=== PATIENT | female | born 1985 | race Caucasian/White ===

== ENCOUNTER 2016-07-17 20:47 | Inpatient (IN) | payer OTHER ==
[2016-07-17] MEDS ORDERED: Acetaminophen 325 MG Tab PO PRN (21:24)
[2016-07-17] MEDS ORDERED: Sodium Chloride 0.9% 10 ML Syringe FLUSH PRN (21:24)
[2016-07-17] MEDS ORDERED: Nalbuphine 20 MG/1 ML Amp IVPUSH PRN (21:24)
[2016-07-17] MEDS ORDERED: Ondansetron 4 MG/2 ML SDV IVPUSH PRN (21:24)
[2016-07-17] MEDS ORDERED: Lactated Ringers 1,000 ML IV SCH (21:30)
[2016-07-17] MEDS ORDERED: Oxytocin/Lactated Ringers 10 UNIT/1,000 ML BAG IV SCH ×2 (21:30)
--- NOTE | 2016-07-17 21:39 | PCM.LDHP ---
L&D History of Present Illness - General Date of Service: 07/17/16 Admit Problem/Dx: Patient Status Order with Admit Dx/Problem 07/17/16 21:25 Patient Status [ADT] Routine Patient Status: Refer to Observation Admission Diagnosis/Problem: Pre-eclampsia Reason for Admit: Pre-eclampsia Nurse Unit Type: Labor and Delivery Admitting Physician: Suyapa Rodriguez Attending Physician: Suyapa Rodriguez Admission Diagnosis/Problem Admission Diagnosis/Problem Pre-eclampsia Source of Information: Patient History Limitations: Reports: No limitations - History of Present Illness Introduction:: 30 y/o at 40 0/7 wks gestation who presented for concerns of labor. Doing well. Getting good FM. 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 : 2 Para: 0 LMP (Approximate): Social & Family History - Tobacco Use Smoking Status *Q: Never Smoker - Alcohol Use Alcohol Use History: No Days Per Week of Alcohol Use: 1 Number of Drinks Per Day: 2 Total Drinks Per Week: 2 - Recreational Drug Use Recreational Drug Use: No H&P Review of Systems - Review of Systems: Review Of Systems: See Below General: Reports: no symptoms Pulmonary: Reports: no symptoms Cardiovascular: Reports: no symptoms Gastrointestinal: Reports: No symptoms Genitourinary: Reports: no symptoms Musculoskeletal: Reports: no symptoms Neurological: Reports: headache (intermittent ) L&D Exam - Exam Exam: See Below - Vital Signs Weight: 86.183 kg - OB Specific Contraction Intensity: Mild movement: active heart tones: present heart tones per min: 130 Heart Rate (FHR) Variability: Moderate (6-25 bmp) Presentation: Vertex - Kendrick Score Kendrick Score Cervix Position: Posterior Kendrick Score Consistency: Soft Kendrick Score Effacement: >80% Kendrick Score Dilation: 1-2 cm Kendrick Score Infant's Station: -1 ,0 Kendrick Score Total: 8 - Exam General: alert, oriented, cooperative Lungs: Clear to auscultation, Normal respiratory effort Cardiovascular: regular rate, regular rhythm Abdomen: soft Genitourinary: Normal external exam Back Exam: normal inspection Extremities: normal inspection Skin: warm, dry, intact Neurological: hyperreflexia DTR: 3+: patella (R) Psychiatric: alert, normal affect, normal mood - Problem List (1) Preeclampsia SNOMED Code(s): 675150709 ICD Code: O14.90 - UNSPECIFIED PRE-ECLAMPSIA, UNSPECIFIED TRIMESTER Status : Acute Current Visit: Yes Qualifiers: Trimester: third trimester Qualified Code(s): O14.93 - Unspecified pre- eclampsia, third trimester (2) 40 weeks gestation of SNOMED Code(s): 85575064 ICD Code: Z3A.40 - 40 WEEKS GESTATION OF Status: Acute Current Visit: Yes Problem List Initiated/Reviewed/Updated: Yes Orders Last 24hrs: Active Orders 24 hr Category Date Time Status Patient Status [ADT] Routine ADT 07/17/16 21:25 Ordered Activity as Tolerated [RC] PFP Care 07/17/16 21:25 Ordered Communication Order [RC] ASDIRECTED Care 07/17/16 21:25 Ordered Communication Order [RC] ASDIRECTED Care 07/17/16 21:25 Ordered Communication Order [RC] ASDIRECTED Care 07/17/16 21:25 Ordered Heart Tones [RC] ASDIRECTED Care 07/17/16 21:26 Ordered Notify Provider [RC] ASDIRECTED Care 07/17/16 21:25 Ordered Notify Provider [RC] PFP Care 07/17/16 21:25 Ordered Notify Provider [RC] PRN Care 07/17/16 21:25 Ordered Peripheral IV Care [RC] . DIRECTED Care 07/17/16 21:26 Ordered Vaginal Exam [RC] ASDIRECTED Care 07/17/16 21:25 Ordered Vital Signs [RC] ASDIRECTED Care 07/17/16 21:25 Ordered Regular Diet [DIET] Diet 07/17/16 Breakfast Ordered ALANINE AMINOTRANSFERASE,ALT [CHEM] Routine Lab 07/17/16 21:24 Ordered ASPARTATE AMNIOTRANSFERASE,AST [CHEM] Routine Lab 07/17/16 21:24 Ordered BASIC METABOLIC PANEL,BMP [CHEM] Routine Lab 07/17/16 21:24 Ordered CBC W/O DIFF,HEMOGRAM [HEME] Routine Lab 07/17/16 21:24 Ordered TYPE AND SCREEN [BBK] Routine Lab 07/17/16 21:24 Ordered Acetaminophen [Tylenol] Med 07/17/16 21:24 Ordered 650 mg PO Q4H PRN Lactated Ringers [Ringers, Lactated] 1,000 ml Med 07/17/16 21:30 Ordered IV ASDIRECTED Nalbuphine [Nubain] Med 07/17/16 21:24 Ordered 10 mg IVPUSH Q2H PRN Ondansetron [Zofran] Med 07/17/16 21:24 Ordered 4 mg IVPUSH Q4H PRN Oxytocin/Lactated Ringers [Pitocin in LR 10 Units/1,000 Med 07/17/16 21:30 Ordered ML] 10 unit in 1,000 ml IV TITRATE Oxytocin/Lactated Ringers [Pitocin in LR 10 Units/1,000 Med 07/17/16 21:30 Ordered ML] 10 unit in 1,000 ml IV TITRATE Sodium Chloride 0.9% [Saline Flush] Med 07/17/16 21:24 Ordered 10 ml FLUSH ASDIRECTED PRN Electronic Heart Tones Ext w TOCO [WOMSER] Oth 07/17/16 21:25 Ordered Routine Electronic Heart Tones Internal [WOMSER] Per Unit Oth 07/17/16 21:25 Ordered Routine Peripheral IV Insertion Adult [OM.PC] Routine Oth 07/17/16 21:25 Ordered Resuscitation Status Routine Resus Stat 07/17/16 21:24 Ordered Medication Orders Acetaminophen (Tylenol) 650 mg PO Q4H PRN PRN Reason: Pain (Mild 1-3) and fever Lactated Ringer's (Ringers, Lactated) 1,000 mls @ 40 mls/hr IV ASDIRECTED VANESSA Oxytocin/Lactated Ringer's (Pitocin In Lr 10 Units/1,000 Ml) 10 unit in 1,000 mls @ 500 mls/hr IV TITRATE VANESSA PRN Reason: Protocol Oxytocin/Lactated Ringer's (Pitocin In Lr 10 Units/1,000 Ml) 10 unit in 1,000 mls @ 12 mls/hr IV TITRATE VANESSA; 2 MUNITS/MIN PRN Reason: Protocol Nalbuphine HCl (Nubain) 10 mg IVPUSH Q2H PRN PRN Reason: Pain (moderate 4-6) Ondansetron HCl (Zofran) 4 mg IVPUSH Q4H PRN PRN Reason: Nausea/Vomiting Sodium Chloride (Saline Flush) 10 ml FLUSH ASDIRECTED PRN PRN Reason: Keep Vein Open Assessment/Plan Comment:: 30 y/o at 40 0/7 wks presented for labor check. Exam similar to clinic , however, patient with several mild range BP's. Given gestational age and elevated BP's will move forward with IOL. * CBC, T&S, AST, ALT, Cr, and UA * Discussed options of cytotec vs pitocin. Patient to decide which she is most comfortable with * Pain management per patient preference * GBS negative, no need for antibiotics * Anticipate Suyapa Rodriguez MD
[2016-07-18] MEDS ORDERED: diphenhydrAMINE 50 MG/ML SDV IVPUSH PRN (04:52)
[2016-07-18] MEDS ORDERED: fentaNYL 100 MCG/2 ML SDV EPIDUR PRN (04:52)
[2016-07-18] MEDS ORDERED: ePHEDrine 50 MG/ML SDV IVPUSH PRN (04:52)
[2016-07-18] MEDS ORDERED: Bupivacaine/fentaNYL/NS 100 ML Bag EPIDUR SCH (05:00)
--- NOTE | 2016-07-18 05:24 | PCM.PREANE ---
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 Respiratory: Reports: no symptoms Cardiovascular: Reports: no symptoms GI: Reports: no symptoms Other: Reports: none - PHYSICAL ASSESSMENT HR: 86 O2 Sat by Pulse Oximetry: 99 RR: 18 BP: 140/76 Vital Signs: Last Vital Signs Temp 37.2 C 07/17/16 21:25 Pulse 100 07/17/16 21:25 Resp 18 07/17/16 21:25 BP 140/76 07/17/16 21:25 Pulse Ox 99 07/17/16 21:25 Height: 1.73 m Weight: 102.512 kg ASA Class: 2 Mental Status: alert & oriented x3 Airway Class: Mallampati = 1 Dentition: Reports: normal dentition Thyro-Mental Finger Breadths: 3 Mouth Opening Finger Breadths: 3 ROM/Head Extension: full Respiratory Status: lungs clear to auscultation bilaterally Cardiovascular Status: regular rate & rhythm, normal S1, S2, no murmur, blood pressure WNL - LAB Values: Laboratory Last Values WBC 10.67 K/mm3 (3.98-10.04) H 07/17/16 21:55 RBC 4.84 M/mm3 (3.98-5.22) 07/17/16 21:55 Hgb 13.9 gm/L (11.2-15.7) 07/17/16 21:55 Hct 40.0 % (34.1-44.9) 07/17/16 21:55 MCV 82.6 fl (79.4-94.8) 07/17/16 21:55 MCH 28.7 pg (25.6-32.2) 07/17/16 21:55 MCHC 34.8 g/dl (32.2-35.5) 07/17/16 21:55 RDW Std Deviation 43.6 fL (36.4-46.3) 07/17/16 21:55 Plt Count 279 K/mm3 (182-369) 07/17/16 21:55 MPV 10.6 fl (9.4-12.3) 07/17/16 21:55 Sodium 138 mEq/L (136-145) 07/17/16 21:55 Potassium 3.8 mEq/L (3.5-5.1) 07/17/16 21:55 Chloride 103 mEq/L (98-107) 07/17/16 21:55 Carbon Dioxide 24 mEq/L (21-32) 07/17/16 21:55 Anion Gap 14.8 (5-15) 07/17/16 21:55 BUN 14 mg/dL (7-18) 07/17/16 21:55 Creatinine 0.8 mg/dL (0.55-1.02) 07/17/16 21:55 Est Cr Clr Drug Dosing 100.90 mL/min 07/17/16 21:55 Estimated GFR (MDRD) > 60 mL/min (>60) 07/17/16 21:55 BUN/Creatinine Ratio 17.5 (14-18) 07/17/16 21:55 Glucose 86 mg/dL (74-106) 07/17/16 21:55 Calcium 9.4 mg/dL (8.5-10.1) 07/17/16 21:55 AST 16 U/L (15-37) 07/17/16 21:55 ALT 17 U/L (14-59) 07/17/16 21:55 Urine Color Yellow (Yellow) 07/17/16 23:10 Urine Appearance Clear (Clear) 07/17/16 23:10 Urine pH 7.0 (5.0-8.0) 07/17/16 23:10 Ur Specific [place] 1.020 (1.005-1.030) 07/17/16 23:10 Urine Protein Negative (Negative) 07/17/16 23:10 Urine Glucose (UA) Negative (Negative) 07/17/16 23:10 Urine Ketones Negative (Negative) 07/17/16 23:10 Urine Occult Blood Negative (Negative) 07/17/16 23:10 Urine Nitrite Negative (Negative) 07/17/16 23:10 Urine Bilirubin Negative (Negative) 07/17/16 23:10 Urine Urobilinogen 0.2 (0.2-1.0) 07/17/16 23:10 Ur Leukocyte Esterase 1+ (Negative) H 07/17/16 23:10 Urine RBC Not seen /hpf (0-5) 07/17/16 23:10 Urine WBC 0-5 /hpf (0-5) 07/17/16 23:10 Ur Squamous Epith Cells 0-5 /hpf (0-5) 07/17/16 23:10 Urine Bacteria Few /hpf (FEW) 07/17/16 23:10 Urine Mucus Not seen /hpf (FEW) 07/17/16 23:10 Blood Type B POSITIVE 07/17/16 21:55 Gel Antibody Screen Negative 07/17/16 21:55 - ALLERGIES Allergies/Adverse Reactions: Allergies Allergy/AdvReac Type Severity Reaction Status Date / Time No Known Allergies Allergy Verified 07/17/16 22:37 - ANESTHESIA PLAN Preop Beta Kim: No Anesthesia Type Planned: epidural - ACKNOWLEDGEMENTS Pt an appropriate candidate for the planned anesthesia: Yes Alternatives and risks of anesthesia discussed w pt/guardian: Yes Pt/Guardian understands and agree with anesthesia plan: Yes PreAnesthesia Questionnaire - Past Health History Medical/Surgical History: Denies 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: , 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 Psychiatric History: Reports: Anxiety, Depression - SUBSTANCE USE Smoking Status *Q: Never Smoker Second Hand Smoke Exposure: No Days Per Week of Alcohol Use: 1 Number of Drinks Per Day: 2 Total Drinks Per Week: 2 Recreational Drug Use History: No - HOME MEDS Home Medications: Home Meds Citalopram [Celexa] 1 tab PO DAILY 08/14/14 [History] Acetaminophen/HYDROcodone [[place] 325-5 MG] 1 tab PO Q6H PRN #5 tab 08/15/14 [Rx] Ondansetron [Zofran ODT] 4 mg PO Q6H PRN #2 tab.dis 08/15/14 [Rx] - CURRENT (IN HOUSE) MEDS Current Meds: Current Medications Acetaminophen (Tylenol) 650 mg PO Q4H PRN PRN Reason: Pain (Mild 1-3) and fever Diphenhydramine HCl (Benadryl) 25 mg IVPUSH Q6H PRN PRN Reason: Itching Ephedrine Sulfate (Ephedrine Sulfate) 5 mg IVPUSH ASDIRECTED PRN PRN Reason: HYPOTENTSION Fentanyl (Sublimaze) 100 mcg EPIDUR Q3H PRN PRN Reason: PAIN Last Admin: 07/18/16 05:13 Dose: 100 mcg Fentanyl/Bupivacaine HCl (Fentanyl/Bupivacaine/Ns 2 Mcg-0.125% 100 Ml) 100 ml EPIDUR ASDIRECTED VANESSA Last Admin: 07/18/16 05:13 Dose: 100 ml Lactated Ringer's (Ringers, Lactated) 1,000 mls @ 40 mls/hr IV ASDIRECTED VANESSA Last Admin: 07/17/16 22:10 Dose: 40 mls/hr Oxytocin/Lactated Ringer's (Pitocin In Lr 10 Units/1,000 Ml) 10 unit in 1,000 mls @ 500 mls/hr IV TITRATE VANESSA PRN Reason: Protocol Oxytocin/Lactated Ringer's (Pitocin In Lr 10 Units/1,000 Ml) 10 unit in 1,000 mls @ 12 mls/hr IV TITRATE VANESSA; 2 MUNITS/MIN PRN Reason: Protocol Last Titration: 07/18/16 02:40 Dose: 18 munits/min, 108 mls/hr Nalbuphine HCl (Nubain) 10 mg IVPUSH Q2H PRN PRN Reason: Pain (moderate 4-6) Ondansetron HCl (Zofran) 4 mg IVPUSH Q4H PRN PRN Reason: Nausea/Vomiting Sodium Chloride (Saline Flush) 10 ml FLUSH ASDIRECTED PRN PRN Reason: Keep Vein Open
--- NOTE | 2016-07-18 07:31 | PCM.PNLD ---
Labor Progress Note - VS & Meds Vital Signs: Last Vital Signs Temp 37.2 C 07/17/16 21:25 Pulse 86 07/18/16 05:24 Resp 18 07/18/16 05:24 BP 140/76 07/18/16 05:24 Pulse Ox 99 07/18/16 05:24 Active Medications: Current Medications Acetaminophen (Tylenol) 650 mg PO Q4H PRN PRN Reason: Pain (Mild 1-3) and fever Diphenhydramine HCl (Benadryl) 25 mg IVPUSH Q6H PRN PRN Reason: Itching Ephedrine Sulfate (Ephedrine Sulfate) 5 mg IVPUSH ASDIRECTED PRN PRN Reason: HYPOTENTSION Fentanyl (Sublimaze) 100 mcg EPIDUR Q3H PRN PRN Reason: PAIN Last Admin: 07/18/16 05:13 Dose: 100 mcg Fentanyl/Bupivacaine HCl (Fentanyl/Bupivacaine/Ns 2 Mcg-0.125% 100 Ml) 100 ml EPIDUR ASDIRECTED VANESSA Last Admin: 07/18/16 05:13 Dose: 100 ml Lactated Ringer's (Ringers, Lactated) 1,000 mls @ 40 mls/hr IV ASDIRECTED VANESSA Last Admin: 07/17/16 22:10 Dose: 40 mls/hr Oxytocin/Lactated Ringer's (Pitocin In Lr 10 Units/1,000 Ml) 10 unit in 1,000 mls @ 500 mls/hr IV TITRATE VANESSA PRN Reason: Protocol Oxytocin/Lactated Ringer's (Pitocin In Lr 10 Units/1,000 Ml) 10 unit in 1,000 mls @ 12 mls/hr IV TITRATE VANESSA; 2 MUNITS/MIN PRN Reason: Protocol Last Titration: 07/18/16 02:40 Dose: 18 munits/min, 108 mls/hr Nalbuphine HCl (Nubain) 10 mg IVPUSH Q2H PRN PRN Reason: Pain (moderate 4-6) Ondansetron HCl (Zofran) 4 mg IVPUSH Q4H PRN PRN Reason: Nausea/Vomiting Sodium Chloride (Saline Flush) 10 ml FLUSH ASDIRECTED PRN PRN Reason: Keep Vein Open - Uterine Contractions Uterine Monitoring Mode: External [place] Contraction Intensity: Moderate to Strong - Monitoring Monitor Mode: External Ultrasound Heart Rate (FHR) Baseline: 135 Heart Rate (FHR) Variability: Moderate (6-25 bmp) Accelerations: Present, 15x15 Decelerations: Early Strip Review: Category I - Vaginal Exam Dilation (cm): 6-7 Effacement (Percent): 100 Station: 1 Cervical Position: Midposition - Labor Progress (Free Text) Labor Progress: Doing well. Comfortable with epidural. Pitocin at 18. AROM performed with release of clear fluid. Anticipate
[2016-07-18] MEDS ORDERED: Ampicillin 2 GM in Sodium Chloride 0.9% 100 ML IV SCH (10:30)
[2016-07-18] MEDS ORDERED: Misoprostol 200 MCG Tab ONE (12:37)
[2016-07-18] MEDS ORDERED: ceFAZolin 2 GM in Premix Bag 1 BAG IV ONE (13:01)
[2016-07-18] MEDS ORDERED: Misoprostol 200 MCG Tab PO STA (13:02)
--- NOTE | 2016-07-18 13:17 | PCM.DEL ---
L & D Note - General Info Date of Service: 07/18/16 - Delivery Note Labor: induced by oxytocin Delivery Outcome: Livebirth Infant Delivery Method: Spontaneous Vaginal Delivery Delivery Mode: Spontaneous Presentation: Left Occiput Posterior (LOP) Nuchal cord: none Anesthesia Type: Epidural Amniotic Fluid Description: Clear Episiotomy Type: None Laceration: 2nd degree, labial (right), perineal Suture type: vicryl Suture size: 2-0 Placenta: manual removal (cord avulsion) Cord: 3 vessels Estimated blood loss: 450 Resuscitation needed: Yes [place]: bulb syringe, cathether, stimulated, warmed, blanket used Score 1 min: 8 Score 5 min: 9 Delivery Comments (Free Text/Narrative):: Patient found to be complete and began pushing. During pushing time patient with a fever to 101.0. She was started on Ampicillin and Gentamicin for chorioamnionitis. She continued to push. After ~3 hours of pushing head delivered from an LOP presentation. No nuchal cord present. With gentle downward traction shoulders and body delivered. Infant placed on maternal abdomen. Cord clamped and cut. Cord blood obtained. Gentle traction put on the cord and it did avulse off the placenta. Manual exploration performed of the uterus and the placenta was able to be extracted in two parts. One last sweep of the uterus confirmed it to be empty. Inspection of the perineum then done which showed a 2nd degree perineal laceration repaired with a 2-0 vicryl in the typical fashion and a right sided labial tear repaired with a running 3-0 vicry. Patient received 2 grams of ancef and 800 mcg of cytotec with manual extraction of placenta. - Patient Data Vitals - most recent: Last Vital Signs Temp 37.2 C 07/17/16 21:25 Pulse 86 07/18/16 05:24 Resp 18 07/18/16 05:24 BP 140/76 07/18/16 05:24 Pulse Ox 99 07/18/16 05:24 Weight - most recent: 102.512 kg Lab Results last 24 hrs: Laboratory Results - last 24 hr 07/17/16 07/17/16 07/17/16 Range/Units 21:55 21:55 21:55 WBC 10.67 H (3.98-10.04) K/mm3 RBC 4.84 (3.98-5.22) M/mm3 Hgb 13.9 (11.2-15.7) gm/L Hct 40.0 (34.1-44.9) % MCV 82.6 (79.4-94.8) fl MCH 28.7 (25.6-32.2) pg MCHC 34.8 (32.2-35.5) g/dl RDW Std Deviation 43.6 (36.4-46.3) fL Plt Count 279 (182-369) K/mm3 MPV 10.6 (9.4-12.3) fl Sodium 138 (136-145) mEq/L Potassium 3.8 (3.5-5.1) mEq/L Chloride 103 (98-107) mEq/L Carbon Dioxide 24 (21-32) mEq/L Anion Gap 14.8 (5-15) BUN 14 (7-18) mg/dL Creatinine 0.8 (0.55-1.02) mg/dL Est Cr Clr Drug Dosing 100.90 mL/min Estimated GFR (MDRD) > 60 (>60) mL/min BUN/Creatinine Ratio 17.5 (14-18) Glucose 86 (74-106) mg/dL Calcium 9.4 (8.5-10.1) mg/dL AST 16 (15-37) U/L ALT 17 (14-59) U/L Urine Color (Yellow) Urine Appearance (Clear) Urine pH (5.0-8.0) Ur Specific [place] (1.005-1.030) Urine Protein (Negative) Urine Glucose (UA) (Negative) Urine Ketones (Negative) Urine Occult Blood (Negative) Urine Nitrite (Negative) Urine Bilirubin (Negative) Urine Urobilinogen (0.2-1.0) Ur Leukocyte Esterase (Negative) Urine RBC (0-5) /hpf Urine WBC (0-5) /hpf Ur Squamous Epith Cells (0-5) /hpf Urine Bacteria (FEW) /hpf Urine Mucus (FEW) /hpf Blood Type B POSITIVE Gel Antibody Screen Negative 07/17/16 Range/Units 23:10 WBC (3.98-10.04) K/mm3 RBC (3.98-5.22) M/mm3 Hgb (11.2-15.7) gm/L Hct (34.1-44.9) % MCV (79.4-94.8) fl MCH (25.6-32.2) pg MCHC (32.2-35.5) g/dl RDW Std Deviation (36.4-46.3) fL Plt Count (182-369) K/mm3 MPV (9.4-12.3) fl Sodium (136-145) mEq/L Potassium (3.5-5.1) mEq/L Chloride (98-107) mEq/L Carbon Dioxide (21-32) mEq/L Anion Gap (5-15) BUN (7-18) mg/dL Creatinine (0.55-1.02) mg/dL Est Cr Clr Drug Dosing mL/min Estimated GFR (MDRD) (>60) mL/min BUN/Creatinine Ratio (14-18) Glucose (74-106) mg/dL Calcium (8.5-10.1) mg/dL AST (15-37) U/L ALT (14-59) U/L Urine Color Yellow (Yellow) Urine Appearance Clear (Clear) Urine pH 7.0 (5.0-8.0) Ur Specific [place] 1.020 (1.005-1.030) Urine Protein Negative (Negative) Urine Glucose (UA) Negative (Negative) Urine Ketones Negative (Negative) Urine Occult Blood Negative (Negative) Urine Nitrite Negative (Negative) Urine Bilirubin Negative (Negative) Urine Urobilinogen 0.2 (0.2-1.0) Ur Leukocyte Esterase 1+ H (Negative) Urine RBC Not seen (0-5) /hpf Urine WBC 0-5 (0-5) /hpf Ur Squamous Epith Cells 0-5 (0-5) /hpf Urine Bacteria Few (FEW) /hpf Urine Mucus Not seen (FEW) /hpf Blood Type Gel Antibody Screen Med Orders - Current: Current Medications Acetaminophen (Tylenol) 650 mg PO Q4H PRN PRN Reason: Pain (Mild 1-3) and fever Diphenhydramine HCl (Benadryl) 25 mg IVPUSH Q6H PRN PRN Reason: Itching Ephedrine Sulfate (Ephedrine Sulfate) 5 mg IVPUSH ASDIRECTED PRN PRN Reason: HYPOTENTSION Fentanyl (Sublimaze) 100 mcg EPIDUR Q3H PRN PRN Reason: PAIN Last Admin: 07/18/16 05:13 Dose: 100 mcg Fentanyl/Bupivacaine HCl (Fentanyl/Bupivacaine/Ns 2 Mcg-0.125% 100 Ml) 100 ml EPIDUR ASDIRECTED [facility] Last Admin: 07/18/16 05:13 Dose: 100 ml Lactated Ringer's (Ringers, Lactated) 1,000 mls @ 40 mls/hr IV ASDIRECTED VANESSA Last Admin: 07/17/16 22:10 Dose: 40 mls/hr Oxytocin/Lactated Ringer's (Pitocin In Lr 10 Units/1,000 Ml) 10 unit in 1,000 mls @ 500 mls/hr IV TITRATE VANESSA PRN Reason: Protocol Last Admin: 07/18/16 10:38 Dose: 84 mls/hr Oxytocin/Lactated Ringer's (Pitocin In Lr 10 Units/1,000 Ml) 10 unit in 1,000 mls @ 12 mls/hr IV TITRATE VANESSA; 2 MUNITS/MIN PRN Reason: Protocol Last Titration: 07/18/16 02:40 Dose: 18 munits/min, 108 mls/hr Ampicillin Sodium 2 gm/ Sodium (Chloride) 100 mls @ 200 mls/hr IV Q6H [facility] Last Admin: 07/18/16 10:38 Dose: 200 mls/hr Cefazolin Sodium/Dextrose 2 gm (/ Premix) 50 mls @ 100 mls/hr IV ONETIME ONE Stop: 07/18/16 13:30 Nalbuphine HCl (Nubain) 10 mg IVPUSH Q2H PRN PRN Reason: Pain (moderate 4-6) Ondansetron HCl (Zofran) 4 mg IVPUSH Q4H PRN PRN Reason: Nausea/Vomiting Sodium Chloride (Saline Flush) 10 ml FLUSH ASDIRECTED PRN PRN Reason: Keep Vein Open Discontinued Medications Gentamicin Sulfate 200 mg/ (Sodium Chloride) 105 mls @ 200 mls/hr IV ONETIME ONE Stop: 07/18/16 11:16 Last Admin: 07/18/16 10:54 Dose: 200 mls/hr Misoprostol (Cytotec) Confirm Administered Dose 600 mcg .ROUTE .STK-MED ONE Stop: 07/18/16 12:38 Misoprostol (Cytotec) 600 mcg PO NOW STA Stop: 07/18/16 13:03 - Problem List & Annotations (1) Preeclampsia SNOMED Code(s): 101287972 Code(s): O14.90 - UNSPECIFIED PRE-ECLAMPSIA, UNSPECIFIED TRIMESTER Status: Acute Current Visit: Yes Qualifiers: Trimester: third trimester Qualified Code(s): O14.93 - Unspecified pre- eclampsia, third trimester (2) 40 weeks gestation of SNOMED Code(s): 69945293 Code(s): Z3A.40 - 40 WEEKS GESTATION OF Status: Acute Current Visit: Yes (3) Chorioamnionitis SNOMED Code(s): 60766590 Code(s): O41.1290 - CHORIOAMNIONITIS, UNSP TRIMESTER, NOT APPLICABLE OR UNSP Status: Acute Current Visit: Yes Qualifiers: Fetus number: single or unspecified fetus Trimester: third trimester Qualified Code(s): O41.1230 - Chorioamnionitis, third trimester, not applicable or unspecified (4) Vaginal delivery SNOMED Code(s): 299044549 Code(s): O80 - ENCOUNTER FOR FULL-TERM UNCOMPLICATED DELIVERY Status: Acute Current Visit: Yes (5) Occiput posterior presentation of fetus SNOMED Code(s): 43943968 Code(s): O64.0XX0 - OBSTRUCTED LABOR DUE TO INCMPL ROTATION OF HEAD, UNSP Status: Acute Current Visit: Yes Qualifiers: Fetus number: single or unspecified fetus Qualified Code(s): O64.0XX0 - Obstructed labor due to incomplete rotation of head, not applicable or unspecified (6) Retained placenta SNOMED Code(s): 474344557 Code(s): O73.0 - RETAINED PLACENTA WITHOUT HEMORRHAGE Status: Acute Current Visit: Yes Qualifiers: Retained placenta detail: unspecified Qualified Code(s): O73.0 - Retained placenta without hemorrhage - Problem List Review Problem List Initiated/Reviewed/Updated: Yes - My Orders Last 24 Hours: My Active Orders 07/17/16 21:24 Acetaminophen [Tylenol] 650 mg PO Q4H PRN Nalbuphine [Nubain] 10 mg IVPUSH Q2H PRN Ondansetron [Zofran] 4 mg IVPUSH Q4H PRN Sodium Chloride 0.9% [Saline Flush] 10 ml FLUSH ASDIRECTED PRN Resuscitation Status Routine 07/17/16 21:25 Patient Status [ADT] Routine Activity as Tolerated [RC] PFP Communication Order [RC] ASDIRECTED Communication Order [RC] ASDIRECTED Communication Order [RC] ASDIRECTED Notify Provider [RC] ASDIRECTED Vital Signs [RC] ASDIRECTED Electronic Heart Tones Ext w TOCO [WOMSER] Routine Electronic Heart Tones Internal [WOMSER] Per Unit Routine Peripheral IV Insertion Adult [OM.PC] Routine 07/17/16 21:26 Peripheral IV Care [RC] . DIRECTED 07/17/16 21:30 Lactated Ringers [Ringers, Lactated] 1,000 ml IV ASDIRECTED Oxytocin/Lactated Ringers [Pitocin in LR 10 Units/1,000 ML] 10 unit in 1,000 ml IV TITRATE Oxytocin/Lactated Ringers [Pitocin in LR 10 Units/1,000 ML] 10 unit in 1,000 ml IV TITRATE 07/17/16 21:55 PATIENT RETYPE [BBK] Routine TYPE AND SCREEN [BBK] Routine 07/18/16 10:30 Ampicillin 2 gm Sodium Chloride 0.9% [Normal Saline] 100 ml IV Q6H 07/18/16 13:01 ceFAZolin [Ancef] 2 gm Premix Bag 1 bag IV ONETIME 07/18/16 13:05 Patient Status Manage Transfer [TRANSFER] Routine - Assessment Assessment:: 30 y/o G2 now P1011 PPD#0 from at 40 1/7 wks - Plan Plan:: Preeclampsia * Monitor BP's closely * 1 week follow up in clinic for BP check Delivery with Chorioamnionitis / Retained placenta * S/p Amp/Gent for chorioamnionitis and dose of ancef for manual extraction. Will continue abx for 24 hours * 600 mcg of cytotec given at delivery. Will continue cytotec for 24 hours * Monitor closely for signs of infection and heavy bleeding indicative of retained portions of placenta S/p * Encourage breast feeding * Discharge home in 2 days
[2016-07-18] MEDS ORDERED: Benzocaine/Menthol 20%-0.5% Spray 56 GM Canister TOP PRN (14:43)
[2016-07-18] MEDS ORDERED: Docusate Sodium 100 MG Cap PO PRN (14:43)
[2016-07-18] MEDS ORDERED: Lanolin 100% Cream 7 GM Tube TOP PRN (14:43)
[2016-07-18] MEDS ORDERED: Witch Hazel Medicated Pads 100/Jar TOP PRN (14:43)
[2016-07-18] MEDS ORDERED: Acetaminophen/Codeine 300-30 MG Tab PO PRN (14:43)
[2016-07-18] MEDS: Ibuprofen 600 MG Tab PO PRN ×2 (16:38→21:17)
--- NOTE | 2016-07-18 16:42 | PCM48HPAN ---
Post Anesthesia Note - EVALUATION WITHIN 48HRS OF ANESTHETIC Vital Signs in Normal Range: Yes Patient Participated in Evaluation: Yes Respiratory Function Stable: Yes Airway Patent: Yes Cardiovascular Function Stable: Yes Hydration Status Stable: Yes Pain Control Satisfactory: Yes Nausea and Vomiting Control Satisfactory: Yes Mental Status Recovered: Yes - COMMENTS/OBSERVATIONS Free Text/Narrative:: Post anesthesia assessment after epidural placement/discontinuation
[2016-07-18] MEDS: Misoprostol 200 MCG Tab SCH (21:20)
[2016-07-18] MEDS: ceFAZolin 1 GM in Premix Bag 1 BAG IV SCH (21:21)
[2016-07-19] MEDS: Acetaminophen 325 MG Tab PO PRN ×2 (00:30→19:10)
[2016-07-19] MEDS: Misoprostol 200 MCG Tab SCH (04:33)
[2016-07-19] MEDS: ceFAZolin 1 GM in Premix Bag 1 BAG IV SCH ×2 (04:40→09:25)
[2016-07-19] MEDS: Ibuprofen 600 MG Tab PO PRN ×2 (08:15→14:55)
--- NOTE | 2016-07-19 10:40 | PCM.SN ---
- Free Text/Narrative Note: Afebrile Tmax 100 through the night. Uterus soft, non tender, normal bleeding, noleg cramping. Last dose of Ansef at 1000 AM start Generic Keflex 1600, possibly home tomorrow
[2016-07-19] MEDS: Cephalexin 500 MG Cap PO SCH ×3 (13:46→21:57)
[2016-07-20] MEDS: Cephalexin 500 MG Cap PO SCH ×2 (04:30→10:19)
[2016-07-20] MEDS: Ibuprofen 600 MG Tab PO PRN ×2 (04:30→12:44)
[2016-07-20 05:39] VITALS: BP 117/74
--- NOTE | 2016-07-20 11:00 | PCM.DCSUM1 ---
Discharge Summary - Hospital Course Free Text/Narrative:: [facility] LIVE L/D Delivery Note Patient Name: JACQUES LANDIS Date of : 87 Patient Status: Inpatient Attending Provider: Suyapa Rodriguez Date: 07/18/16 13:15 Initialization Date: 07/18/16 13:15 L & D Note - General Info Date of Service: 07/18/16 - Delivery Note Labor: induced by oxytocin Delivery Outcome: Livebirth Infant Delivery Method: Spontaneous Vaginal Delivery Infant Delivery Mode: Spontaneous Presentation: Left Occiput Posterior (LOP) Nuchal cord: none Anesthesia Type: Epidural Amniotic Fluid Description: Clear Episiotomy Type: None Laceration: 2nd degree, labial (right), perineal Suture type: vicryl Suture size: 2-0 Placenta: manual removal (cord avulsion) Cord: 3 vessels Estimated blood loss: 450 Resuscitation needed: Yes : bulb syringe, cathether, stimulated, warmed, blanket used Score 1 min: 8 Score 5 min: 9 Delivery Comments (Free Text/Narrative):: Patient found to be complete and began pushing. During pushing time patient with a fever to 101.0. She was started on Ampicillin and Gentamicin for chorioamnionitis. She continued to push. After ~3 hours of pushing head delivered from an LOP presentation. No nuchal cord present. With gentle downward traction shoulders and body delivered. placed on maternal abdomen. Cord clamped and cut. Cord blood obtained. Gentle traction put on the cord and it did avulse off the placenta. Manual exploration performed of the uterus and the placenta was able to be extracted in two parts. One last sweep of the uterus confirmed it to be empty. Inspection of the perineum then done which showed a 2nd degree perineal laceration repaired with a 2-0 vicryl in the typical fashion and a right sided labial tear repaired with a running 3-0 vicry. Patient received 2 grams of ancef and 800 mcg of cytotec with manual extraction of placenta. - Patient Data Vitals - most recent: Last Vital Signs Temp 37.2 C 07/17/16 21:25 Pulse 86 07/18/16 05:24 Resp 18 07/18/16 05:24 BP 140/76 07/18/16 05:24 Pulse Ox 99 07/18/16 05:24 Weight - most recent: 102.512 kg Lab Results last 24 hrs: Laboratory Results - last 24 hr 07/17/16 07/17/16 07/17/16 Range/Units 21:55 21:55 21:55 WBC 10.67 H (3.98-10.04) K/mm3 RBC 4.84 (3.98-5.22) M/mm3 Hgb 13.9 (11.2-15.7) gm/L Hct 40.0 (34.1-44.9) % MCV 82.6 (79.4-94.8) fl MCH 28.7 (25.6-32.2) pg MCHC 34.8 (32.2-35.5) g/dl RDW Std Deviation 43.6 (36.4-46.3) fL Plt Count 279 (182-369) K/mm3 MPV 10.6 (9.4-12.3) fl Sodium 138 (136-145) mEq/L Potassium 3.8 (3.5-5.1) mEq/L Chloride 103 (98-107) mEq/L Carbon Dioxide 24 (21-32) mEq/L Anion Gap 14.8 (5-15) BUN 14 (7-18) mg/dL Creatinine 0.8 (0.55-1.02) mg/dL Est Cr Clr Drug Dosing 100.90 mL/min Estimated GFR (MDRD) > 60 (>60) mL/min BUN/Creatinine Ratio 17.5 (14-18) Glucose 86 (74-106) mg/dL Calcium 9.4 (8.5-10.1) mg/dL AST 16 (15-37) U/L ALT 17 (14-59) U/L Urine Color (Yellow) Urine Appearance (Clear) Urine pH (5.0-8.0) Ur Specific [place] (1.005-1.030) Urine Protein (Negative) Urine Glucose (UA) (Negative) Urine Ketones (Negative) Urine Occult Blood (Negative) Urine Nitrite (Negative) Urine Bilirubin (Negative) Urine Urobilinogen (0.2-1.0) Ur Leukocyte Esterase (Negative) Urine RBC (0-5) /hpf Urine WBC (0-5) /hpf Ur Squamous Epith Cells (0-5) /hpf Urine Bacteria (FEW) /hpf Urine Mucus (FEW) /hpf Blood Type B POSITIVE Gel Antibody Screen Negative 07/17/16 Range/Units 23:10 WBC (3.98-10.04) K/mm3 RBC (3.98-5.22) M/mm3 Hgb (11.2-15.7) gm/L Hct (34.1-44.9) % MCV (79.4-94.8) fl MCH (25.6-32.2) pg MCHC (32.2-35.5) g/dl RDW Std Deviation (36.4-46.3) fL Plt Count (182-369) K/mm3 MPV (9.4-12.3) fl Sodium (136-145) mEq/L Potassium (3.5-5.1) mEq/L Chloride (98-107) mEq/L Carbon Dioxide (21-32) mEq/L Anion Gap (5-15) BUN (7-18) mg/dL Creatinine (0.55-1.02) mg/dL Est Cr Clr Drug Dosing mL/min Estimated GFR (MDRD) (>60) mL/min BUN/Creatinine Ratio (14-18) Glucose (74-106) mg/dL Calcium (8.5-10.1) mg/dL AST (15-37) U/L ALT (14-59) U/L Urine Color Yellow (Yellow) Urine Appearance Clear (Clear) Urine pH 7.0 (5.0-8.0) Ur Specific [place] 1.020 (1.005-1.030) Urine Protein Negative (Negative) Urine Glucose (UA) Negative (Negative) Urine Ketones Negative (Negative) Urine Occult Blood Negative (Negative) Urine Nitrite Negative (Negative) Urine Bilirubin Negative (Negative) Urine Urobilinogen 0.2 (0.2-1.0) Ur Leukocyte Esterase 1+ H (Negative) Urine RBC Not seen (0-5) /hpf Urine WBC 0-5 (0-5) /hpf Ur Squamous Epith Cells 0-5 (0-5) /hpf Urine Bacteria Few (FEW) /hpf Urine Mucus Not seen (FEW) /hpf Blood Type Gel Antibody Screen Med Orders - Current: Current Medications Acetaminophen (Tylenol) 650 mg PO Q4H PRN PRN Reason: Pain (Mild 1-3) and fever Diphenhydramine HCl (Benadryl) 25 mg IVPUSH Q6H PRN PRN Reason: Itching Ephedrine Sulfate (Ephedrine Sulfate) 5 mg IVPUSH ASDIRECTED PRN PRN Reason: HYPOTENTSION Fentanyl (Sublimaze) 100 mcg EPIDUR Q3H PRN PRN Reason: PAIN Last Admin: 07/18/16 05:13 Dose: 100 mcg Fentanyl/Bupivacaine HCl (Fentanyl/Bupivacaine/Ns 2 Mcg-0.125% 100 Ml) 100 ml EPIDUR ASDIRECTED [facility] Last Admin: 07/18/16 05:13 Dose: 100 ml Lactated Ringer's (Ringers, Lactated) 1,000 mls @ 40 mls/hr IV ASDIRECTED [facility] Last Admin: 07/17/16 22:10 Dose: 40 mls/hr Oxytocin/Lactated Ringer's (Pitocin In Lr 10 Units/1,000 Ml) 10 unit in 1,000 mls @ 500 mls/hr IV TITRATE VANESSA PRN Reason: Protocol Last Admin: 07/18/16 10:38 Dose: 84 mls/hr Oxytocin/Lactated Ringer's (Pitocin In Lr 10 Units/1,000 Ml) 10 unit in 1,000 mls @ 12 mls/hr IV TITRATE VANESSA; 2 MUNITS/MIN PRN Reason: Protocol Last Titration: 07/18/16 02:40 Dose: 18 munits/min, 108 mls/hr Ampicillin Sodium 2 gm/ Sodium (Chloride) 100 mls @ 200 mls/hr IV Q6H [facility] Last Admin: 07/18/16 10:38 Dose: 200 mls/hr Cefazolin Sodium/Dextrose 2 gm (/ Premix) 50 mls @ 100 mls/hr IV ONETIME ONE Stop: 07/18/16 13:30 Nalbuphine HCl (Nubain) 10 mg IVPUSH Q2H PRN PRN Reason: Pain (moderate 4-6) Ondansetron HCl (Zofran) 4 mg IVPUSH Q4H PRN PRN Reason: Nausea/Vomiting Sodium Chloride (Saline Flush) 10 ml FLUSH ASDIRECTED PRN PRN Reason: Keep Vein Open Discontinued Medications Gentamicin Sulfate 200 mg/ (Sodium Chloride) 105 mls @ 200 mls/hr IV ONETIME ONE Stop: 07/18/16 11:16 Last Admin: 07/18/16 10:54 Dose: 200 mls/hr Misoprostol (Cytotec) Confirm Administered Dose 600 mcg .ROUTE .STK-MED ONE Stop: 07/18/16 12:38 Misoprostol (Cytotec) 600 mcg PO NOW STA Stop: 07/18/16 13:03 - Problem List & Annotations (1) Preeclampsia SNOMED Code(s): 755215807 Code(s): O14.90 - UNSPECIFIED PRE-ECLAMPSIA, UNSPECIFIED TRIMESTER Status: Acute Current Visit: Yes Qualifiers: Trimester: third trimester Qualified Code(s): O14.93 - Unspecified pre- eclampsia, third trimester (2) 40 weeks gestation of SNOMED Code(s): 97721170 Code(s): Z3A.40 - 40 WEEKS GESTATION OF Status: Acute Current Visit: Yes (3) Chorioamnionitis SNOMED Code(s): 08156510 Code(s): O41.1290 - CHORIOAMNIONITIS, UNSP TRIMESTER, NOT APPLICABLE OR UNSP Status: Acute Current Visit: Yes Qualifiers: Fetus number: single or unspecified fetus Trimester: third trimester Qualified Code(s): O41.1230 - Chorioamnionitis, third trimester, not applicable or unspecified (4) Vaginal delivery SNOMED Code(s): 840215932 Code(s): O80 - ENCOUNTER FOR FULL-TERM UNCOMPLICATED DELIVERY Status: Acute Current Visit: Yes (5) Occiput posterior presentation of fetus SNOMED Code(s): 09585719 Code(s): O64.0XX0 - OBSTRUCTED LABOR DUE TO INCMPL ROTATION OF HEAD, UNSP Status: Acute Current Visit: Yes Qualifiers: Fetus number: single or unspecified fetus Qualified Code(s): O64.0XX0 - Obstructed labor due to incomplete rotation of head, not applicable or unspecified (6) Retained placenta SNOMED Code(s): 934516600 Code(s): O73.0 - RETAINED PLACENTA WITHOUT HEMORRHAGE Status: Acute Current Visit: Yes Qualifiers: Retained placenta detail: unspecified Qualified Code(s): O73.0 - Retained placenta without hemorrhage - Problem List Review Problem List Initiated/Reviewed/Updated: Yes - My Orders Last 24 Hours: My Active Orders 07/17/16 21:24 Acetaminophen [Tylenol] 650 mg PO Q4H PRN Nalbuphine [Nubain] 10 mg IVPUSH Q2H PRN Ondansetron [Zofran] 4 mg IVPUSH Q4H PRN Sodium Chloride 0.9% [Saline Flush] 10 ml FLUSH ASDIRECTED PRN Resuscitation Status Routine 07/17/16 21:25 Patient Status [ADT] Routine Activity as Tolerated [RC] PFP Communication Order [RC] ASDIRECTED Communication Order [RC] ASDIRECTED Communication Order [RC] ASDIRECTED Notify Provider [RC] ASDIRECTED Vital Signs [RC] ASDIRECTED Electronic Heart Tones Ext w TOCO [WOMSER] Routine Electronic Heart Tones Internal [WOMSER] Per Unit Routine Peripheral IV Insertion Adult [OM.PC] Routine 07/17/16 21:26 Peripheral IV Care [RC] . DIRECTED 07/17/16 21:30 Lactated Ringers [Ringers, Lactated] 1,000 ml IV ASDIRECTED Oxytocin/Lactated Ringers [Pitocin in LR 10 Units/1,000 ML] 10 unit in 1,000 ml IV TITRATE Oxytocin/Lactated Ringers [Pitocin in LR 10 Units/1,000 ML] 10 unit in 1,000 ml IV TITRATE 07/17/16 21:55 PATIENT RETYPE [BBK] Routine TYPE AND SCREEN [BBK] Routine 07/18/16 10:30 Ampicillin 2 gm Sodium Chloride 0.9% [Normal Saline] 100 ml IV Q6H 07/18/16 13:01 ceFAZolin [Ancef] 2 gm Premix Bag 1 bag IV ONETIME 07/18/16 13:05 Patient Status Manage Transfer [TRANSFER] Routine - Assessment Assessment:: 30 y/o G2 now P1011 PPD#0 from at 40 1/7 wks - Plan Plan:: Preeclampsia * Monitor BP's closely * 1 week follow up in clinic for BP check Delivery with Chorioamnionitis / Retained placenta * S/p Amp/Gent for chorioamnionitis and dose of ancef for manual extraction. Will continue abx for 24 hours * 600 mcg of cytotec given at delivery. Will continue cytotec for 24 hours * Monitor closely for signs of infection and heavy bleeding indicative of retained portions of placenta S/p * Encourage breast feeding * Discharge home in 2 days * * Comtinued Ancef until 1000 AM Thursday then started Generic Keflex 500 q6h will continue at home x10 days. Motrin 600 mg po q6h prn pain HPI Initial Comments: [facility] LIVE L/D Delivery Note Patient Name: JACQUES LANDIS Date of : 87 Patient Status: Inpatient Attending Provider: Suyapa Rodriguez Date: 07/18/16 13:15 Initialization Date: 07/18/16 13:15 L & D Note - General Info Date of Service: 07/18/16 - Delivery Note Labor: induced by oxytocin Delivery Outcome: Livebirth Infant Delivery Method: Spontaneous Vaginal Delivery Infant Delivery Mode: Spontaneous Presentation: Left Occiput Posterior (LOP) Nuchal cord: none Anesthesia Type: Epidural Amniotic Fluid Description: Clear Episiotomy Type: None Laceration: 2nd degree, labial (right), perineal Suture type: vicryl Suture size: 2-0 Placenta: manual removal (cord avulsion) Cord: 3 vessels Estimated blood loss: 450 Resuscitation needed: Yes [place]: bulb syringe, cathether, stimulated, warmed, blanket used Score 1 min: 8 Score 5 min: 9 Delivery Comments (Free Text/Narrative):: Patient found to be complete and began pushing. During pushing time patient with a fever to 101.0. She was started on Ampicillin and Gentamicin for chorioamnionitis. She continued to push. After ~3 hours of pushing head delivered from an LOP presentation. No nuchal cord present. With gentle downward traction shoulders and body delivered. Infant placed on maternal abdomen. Cord clamped and cut. Cord blood obtained. Gentle traction put on the cord and it did avulse off the placenta. Manual exploration performed of the uterus and the placenta was able to be extracted in two parts. One last sweep of the uterus confirmed it to be empty. Inspection of the perineum then done which showed a 2nd degree perineal laceration repaired with a 2-0 vicryl in the typical fashion and a right sided labial tear repaired with a running 3-0 vicry. Patient received 2 grams of ancef and 800 mcg of cytotec with manual extraction of placenta. - Patient Data Vitals - most recent: Last Vital Signs Temp 37.2 C 07/17/16 21:25 Pulse 86 07/18/16 05:24 Resp 18 07/18/16 05:24 BP 140/76 07/18/16 05:24 Pulse Ox 99 07/18/16 05:24 Weight - most recent: 102.512 kg Lab Results last 24 hrs: Laboratory Results - last 24 hr 07/17/16 07/17/16 07/17/16 Range/Units 21:55 21:55 21:55 WBC 10.67 H (3.98-10.04) K/mm3 RBC 4.84 (3.98-5.22) M/mm3 Hgb 13.9 (11.2-15.7) gm/L Hct 40.0 (34.1-44.9) % MCV 82.6 (79.4-94.8) fl MCH 28.7 (25.6-32.2) pg MCHC 34.8 (32.2-35.5) g/dl RDW Std Deviation 43.6 (36.4-46.3) fL Plt Count 279 (182-369) K/mm3 MPV 10.6 (9.4-12.3) fl Sodium 138 (136-145) mEq/L Potassium 3.8 (3.5-5.1) mEq/L Chloride 103 (98-107) mEq/L Carbon Dioxide 24 (21-32) mEq/L Anion Gap 14.8 (5-15) BUN 14 (7-18) mg/dL Creatinine 0.8 (0.55-1.02) mg/dL Est Cr Clr Drug Dosing 100.90 mL/min Estimated GFR (MDRD) > 60 (>60) mL/min BUN/Creatinine Ratio 17.5 (14-18) Glucose 86 (74-106) mg/dL Calcium 9.4 (8.5-10.1) mg/dL AST 16 (15-37) U/L ALT 17 (14-59) U/L Urine Color (Yellow) Urine Appearance (Clear) Urine pH (5.0-8.0) Ur Specific [place] (1.005-1.030) Urine Protein (Negative) Urine Glucose (UA) (Negative) Urine Ketones (Negative) Urine Occult Blood (Negative) Urine Nitrite (Negative) Urine Bilirubin (Negative) Urine Urobilinogen (0.2-1.0) Ur Leukocyte Esterase (Negative) Urine RBC (0-5) /hpf Urine WBC (0-5) /hpf Ur Squamous Epith Cells (0-5) /hpf Urine Bacteria (FEW) /hpf Urine Mucus (FEW) /hpf Blood Type B POSITIVE Gel Antibody Screen Negative 07/17/16 Range/Units 23:10 WBC (3.98-10.04) K/mm3 RBC (3.98-5.22) M/mm3 Hgb (11.2-15.7) gm/L Hct (34.1-44.9) % MCV (79.4-94.8) fl MCH (25.6-32.2) pg MCHC (32.2-35.5) g/dl RDW Std Deviation (36.4-46.3) fL Plt Count (182-369) K/mm3 MPV (9.4-12.3) fl Sodium (136-145) mEq/L Potassium (3.5-5.1) mEq/L Chloride (98-107) mEq/L Carbon Dioxide (21-32) mEq/L Anion Gap (5-15) BUN (7-18) mg/dL Creatinine (0.55-1.02) mg/dL Est Cr Clr Drug Dosing mL/min Estimated GFR (MDRD) (>60) mL/min BUN/Creatinine Ratio (14-18) Glucose (74-106) mg/dL Calcium (8.5-10.1) mg/dL AST (15-37) U/L ALT (14-59) U/L Urine Color Yellow (Yellow) Urine Appearance Clear (Clear) Urine pH 7.0 (5.0-8.0) Ur Specific [place] 1.020 (1.005-1.030) Urine Protein Negative (Negative) Urine Glucose (UA) Negative (Negative) Urine Ketones Negative (Negative) Urine Occult Blood Negative (Negative) Urine Nitrite Negative (Negative) Urine Bilirubin Negative (Negative) Urine Urobilinogen 0.2 (0.2-1.0) Ur Leukocyte Esterase 1+ H (Negative) Urine RBC Not seen (0-5) /hpf Urine WBC 0-5 (0-5) /hpf Ur Squamous Epith Cells 0-5 (0-5) /hpf Urine Bacteria Few (FEW) /hpf Urine Mucus Not seen (FEW) /hpf Blood Type Gel Antibody Screen Med Orders - Current: Current Medications Acetaminophen (Tylenol) 650 mg PO Q4H PRN PRN Reason: Pain (Mild 1-3) and fever Diphenhydramine HCl (Benadryl) 25 mg IVPUSH Q6H PRN PRN Reason: Itching Ephedrine Sulfate (Ephedrine Sulfate) 5 mg IVPUSH ASDIRECTED PRN PRN Reason: HYPOTENTSION Fentanyl (Sublimaze) 100 mcg EPIDUR Q3H PRN PRN Reason: PAIN Last Admin: 07/18/16 05:13 Dose: 100 mcg Fentanyl/Bupivacaine HCl (Fentanyl/Bupivacaine/Ns 2 Mcg-0.125% 100 Ml) 100 ml EPIDUR ASDIRECTED VANESSA Last Admin: 07/18/16 05:13 Dose: 100 ml Lactated Ringer's (Ringers, Lactated) 1,000 mls @ 40 mls/hr IV ASDIRECTED VANESSA Last Admin: 07/17/16 22:10 Dose: 40 mls/hr Oxytocin/Lactated Ringer's (Pitocin In Lr 10 Units/1,000 Ml) 10 unit in 1,000 mls @ 500 mls/hr IV TITRATE VANESSA PRN Reason: Protocol Last Admin: 07/18/16 10:38 Dose: 84 mls/hr Oxytocin/Lactated Ringer's (Pitocin In Lr 10 Units/1,000 Ml) 10 unit in 1,000 mls @ 12 mls/hr IV TITRATE VANESSA; 2 MUNITS/MIN PRN Reason: Protocol Last Titration: 07/18/16 02:40 Dose: 18 munits/min, 108 mls/hr Ampicillin Sodium 2 gm/ Sodium (Chloride) 100 mls @ 200 mls/hr IV Q6H [facility] Last Admin: 07/18/16 10:38 Dose: 200 mls/hr Cefazolin Sodium/Dextrose 2 gm (/ Premix) 50 mls @ 100 mls/hr IV ONETIME ONE Stop: 07/18/16 13:30 Nalbuphine HCl (Nubain) 10 mg IVPUSH Q2H PRN PRN Reason: Pain (moderate 4-6) Ondansetron HCl (Zofran) 4 mg IVPUSH Q4H PRN PRN Reason: Nausea/Vomiting Sodium Chloride (Saline Flush) 10 ml FLUSH ASDIRECTED PRN PRN Reason: Keep Vein Open Discontinued Medications Gentamicin Sulfate 200 mg/ (Sodium Chloride) 105 mls @ 200 mls/hr IV ONETIME ONE Stop: 07/18/16 11:16 Last Admin: 07/18/16 10:54 Dose: 200 mls/hr Misoprostol (Cytotec) Confirm Administered Dose 600 mcg .ROUTE .STK-MED ONE Stop: 07/18/16 12:38 Misoprostol (Cytotec) 600 mcg PO NOW STA Stop: 07/18/16 13:03 - Problem List & Annotations (1) Preeclampsia SNOMED Code(s): 429505073 Code(s): O14.90 - UNSPECIFIED PRE-ECLAMPSIA, UNSPECIFIED TRIMESTER Status: Acute Current Visit: Yes Qualifiers: Trimester: third trimester Qualified Code(s): O14.93 - Unspecified pre- eclampsia, third trimester (2) 40 weeks gestation of SNOMED Code(s): 28803011 Code(s): Z3A.40 - 40 WEEKS GESTATION OF Status: Acute Current Visit: Yes (3) Chorioamnionitis SNOMED Code(s): 43994691 Code(s): O41.1290 - CHORIOAMNIONITIS, UNSP TRIMESTER, NOT APPLICABLE OR UNSP Status: Acute Current Visit: Yes Qualifiers: Fetus number: single or unspecified fetus Trimester: third trimester Qualified Code(s): O41.1230 - Chorioamnionitis, third trimester, not applicable or unspecified (4) Vaginal delivery SNOMED Code(s): 624871563 Code(s): O80 - ENCOUNTER FOR FULL-TERM UNCOMPLICATED DELIVERY Status: Acute Current Visit: Yes (5) Occiput posterior presentation of fetus SNOMED Code(s): 26107835 Code(s): O64.0XX0 - OBSTRUCTED LABOR DUE TO INCMPL ROTATION OF HEAD, UNSP Status: Acute Current Visit: Yes Qualifiers: Fetus number: single or unspecified fetus Qualified Code(s): O64.0XX0 - Obstructed labor due to incomplete rotation of head, not applicable or unspecified (6) Retained placenta SNOMED Code(s): 260419977 Code(s): O73.0 - RETAINED PLACENTA WITHOUT HEMORRHAGE Status: Acute Current Visit: Yes Qualifiers: Retained placenta detail: unspecified Qualified Code(s): O73.0 - Retained placenta without hemorrhage - Problem List Review Problem List Initiated/Reviewed/Updated: Yes - My Orders Last 24 Hours: My Active Orders 07/17/16 21:24 Acetaminophen [Tylenol] 650 mg PO Q4H PRN Nalbuphine [Nubain] 10 mg IVPUSH Q2H PRN Ondansetron [Zofran] 4 mg IVPUSH Q4H PRN Sodium Chloride 0.9% [Saline Flush] 10 ml FLUSH ASDIRECTED PRN Resuscitation Status Routine 07/17/16 21:25 Patient Status [ADT] Routine Activity as Tolerated [RC] PFP Communication Order [RC] ASDIRECTED Communication Order [RC] ASDIRECTED Communication Order [RC] ASDIRECTED Notify Provider [RC] ASDIRECTED Vital Signs [RC] ASDIRECTED Electronic Heart Tones Ext w TOCO [WOMSER] Routine Electronic Heart Tones Internal [WOMSER] Per Unit Routine Peripheral IV Insertion Adult [OM.PC] Routine 07/17/16 21:26 Peripheral IV Care [RC] . DIRECTED 07/17/16 21:30 Lactated Ringers [Ringers, Lactated] 1,000 ml IV ASDIRECTED Oxytocin/Lactated Ringers [Pitocin in LR 10 Units/1,000 ML] 10 unit in 1,000 ml IV TITRATE Oxytocin/Lactated Ringers [Pitocin in LR 10 Units/1,000 ML] 10 unit in 1,000 ml IV TITRATE 07/17/16 21:55 PATIENT RETYPE [BBK] Routine TYPE AND SCREEN [BBK] Routine 07/18/16 10:30 Ampicillin 2 gm Sodium Chloride 0.9% [Normal Saline] 100 ml IV Q6H 07/18/16 13:01 ceFAZolin [Ancef] 2 gm Premix Bag 1 bag IV ONETIME 07/18/16 13:05 Patient Status Manage Transfer [TRANSFER] Routine - Assessment Assessment:: 30 y/o G2 now P1011 PPD#0 from at 40 1/7 wks - Plan Plan:: Preeclampsia * Monitor BP's closely * 1 week follow up in clinic for BP check Delivery with Chorioamnionitis / Retained placenta * S/p Amp/Gent for chorioamnionitis and dose of ancef for manual extraction. Will continue abx for 24 hours * 600 mcg of cytotec given at delivery. Will continue cytotec for 24 hours * Monitor closely for signs of infection and heavy bleeding indicative of retained portions of placenta S/p * Encourage breast feeding * Discharge home in 2 days * * Comtinued Ancef until 1000 AM Thursday then started Generic Keflex 500 q6h will continue at home x10 days. Motrin 600 mg po q6h prn pain Brief History: [facility] LIVE . L/D Delivery Note. Patient Name: JACQUES LANDISILedical Record Number: [id number]. Date of : Patient Status: Inpatient. Attending Provider: Suyapa Rodriguezcount Number : [id number]. Date: 07/18/16 13:15Initialization Date: 07/18/16 13:15. L & D Note. - General Info. Date of Service: 07/18/16. - Delivery Note. Labor: induced by oxytocin. Delivery Outcome: Livebirth. Delivery Method: Spontaneous Vaginal Delivery. Infant Delivery Mode: Spontaneous. Presentation: Left Occiput Posterior (LOP). Nuchal cord: none. Anesthesia Type : Epidural. Amniotic Fluid Description: Clear. Episiotomy Type: None. Laceration: 2nd degree, labial (right), perineal. Suture type: vicryl. Suture size: 2-0. Placenta: manual removal (cord avulsion). Cord: 3 vessels. Estimated blood loss: 450. Resuscitation needed: Yes. [place]: bulb syringe, cathether, stimulated, warmed, blanket used. Score 1 min: 8. Score 5 min: 9. Delivery Comments (Free Text/Narrative):: Patient found to be complete and began pushing. During pushing time patient with a fever to 101.0. She was started on Ampicillin and Gentamicin for chorioamnionitis. She continued to push. After ~3 hours of pushing head delivered from an LOP presentation. No nuchal cord present. With gentle downward traction shoulders and body delivered. Infant placed on maternal abdomen. Cord clamped and cut. Cord blood obtained. Gentle traction put on the cord and it did avulse off the placenta. Manual exploration performed of the uterus and the placenta was able to be extracted in two parts. One last sweep of the uterus confirmed it to be empty. Inspection of the perineum then done which showed a 2nd degree perineal laceration repaired with a 2-0 vicryl in the typical fashion and a right sided labial tear repaired with a running 3-0 vicry. Patient received 2 grams of ancef and 800 mcg of cytotec with manual extraction of placenta. - Patient Data. Vitals - most recent: Last Vital Signs. Temp 37.2 C 07/17/16 21:25. Pulse 86 07/18/16 05:24. Resp 18 07/18/16 05:24. BP 140/76 07/18/16 05:24. Pulse Ox 99 07/18/16 05:24. Weight - most recent: 102.512 kg. Lab Results last 24 hrs: Laboratory Results - last 24 hr. 07/17/ /Range/Units. 21:5521:5521:55. WBC 10.67 H (3.98-10.04) K/ mm3. RBC 4.84 (3.98-5.22) M/mm3. Hgb 13.9 (11.2-15.7) gm/L. Hct 40.0 (34.1- 44.9) %. MCV 82.6 (79.4-94.8) fl. MCH 28.7 (25.6-32.2) pg. MCHC 34.8 (32.2 -35.5) g/dl. RDW Std Deviation 43.6 (36.4-46.3) fL. Plt Count 279 (182-369) K/mm3. MPV 10.6 (9.4-12.3) fl. Sodium 138 (136-145) mEq/L. Potassium 3.8 (3.5-5.1) mEq/L. Chloride 103 (98-107) mEq/L. Carbon Dioxide 24 (21-32) mEq /L. Anion Gap 14.8 (5-15). BUN 14 (7-18) mg/dL. Creatinine 0.8 (0.55-1.02) mg/dL. Est Cr Clr Drug Dosing 100.90 mL/min. Estimated GFR (MDRD) > 60 (>60) mL/min. BUN/Creatinine Ratio 17.5 (14-18). Glucose 86 (74-106) mg/dL. Calcium 9.4 (8.5-10.1) mg/dL. AST 16 (15-37) U/L. ALT 17 (14-59) U/L. Urine Color (Yellow). Urine Appearance (Clear). Urine pH (5.0-8.0). Ur Specific [place] (1.005-1.030). Urine Protein (Negative). Urine Glucose (UA) ( Negative). Urine Ketones (Negative). Urine Occult Blood (Negative). Urine Nitrite (Negative). Urine Bilirubin (Negative). Urine Urobilinogen (0.2-1.0). Ur Leukocyte Esterase (Negative). Urine RBC (0-5) /hpf. Urine WBC (0-5) / hpf. Ur Squamous Epith Cells (0-5) /hpf. Urine Bacteria (FEW) /hpf. Urine Mucus (FEW) /hpf. Blood Type B POSITIVE. Gel Antibody Screen Negative. 07/17Range/Units. 23:10. WBC (3.98-10.04) K/mm3. RBC (3.98-5.22) M/mm3. Hgb (11.2-15.7) gm/L. Hct (34.1-44.9) %. MCV (79.4-94.8) fl. MCH (25.6-32.2) pg. MCHC (32.2-35.5) g/dl. RDW Std Deviation (36.4-46.3) fL. Plt Count (182 -369) K/mm3. MPV (9.4-12.3) fl. Sodium (136-145) mEq/L. Potassium (3.5-5.1 ) mEq/L. Chloride (98-107) mEq/L. Carbon Dioxide (21-32) mEq/L. Anion Gap (5-15). BUN (7-18) mg/dL. Creatinine (0.55-1.02) mg/dL. Est Cr Clr Drug Dosing mL/min. Estimated GFR (MDRD) (>60) mL/min. BUN/Creatinine Ratio (14-18 ). Glucose (74-106) mg/dL. Calcium (8.5-10.1) mg/dL. AST (15-37) U/L. ALT (14-59) U/L. Urine Color Yellow (Yellow). Urine Appearance Clear (Clear) . Urine pH 7.0 (5.0-8.0). Ur Specific [place] 1.020 (1.005-1.030). Urine Protein Negative (Negative). Urine Glucose (UA) Negative (Negative). Urine Ketones Negative (Negative). Urine Occult Blood Negative (Negative). Urine Nitrite Negative (Negative). Urine Bilirubin Negative (Negative). Urine Urobilinogen 0.2 (0.2-1.0). Ur Leukocyte Esterase 1+ H (Negative). Urine RBC Not seen (0-5) /hpf. Urine WBC 0-5 (0-5) /hpf. Ur Squamous Epith Cells 0-5 ( 0-5) /hpf. Urine Bacteria Few (FEW) /hpf. Urine Mucus Not seen (FEW) /hpf. Blood Type. Gel Antibody Screen. Med Orders - Current: Current Medications. Acetaminophen (Tylenol) 650 mg PO Q4H PRN. PRN Reason: Pain ( Mild 1-3) and fever. Diphenhydramine HCl (Benadryl) 25 mg IVPUSH Q6H PRN. PRN Reason: Itching. Ephedrine Sulfate (Ephedrine Sulfate) 5 mg IVPUSH ASDIRECTED PRN. PRN Reason: HYPOTENTSION. Fentanyl (Sublimaze) 100 mcg EPIDUR Q3H PRN. PRN Reason: PAIN. Last Admin: 07/18/16 05:13 Dose: 100 mcg. Fentanyl/Bupivacaine HCl (Fentanyl/Bupivacaine/Ns 2 Mcg-0.125% 100 Ml) 100 ml EPIDUR ASDIRECTED VANESSA. Last Admin: 07/18/16 05:13 Dose: 100 ml. Lactated Ringer's (Ringers, Lactated) 1,000 mls @ 40 mls/hr IV ASDIRECTED VANESSA. Last Admin: 07/17/16 22:10 Dose: 40 mls/hr. Oxytocin/Lactated Ringer's (Pitocin In Lr 10 Units/1,000 Ml) 10 unit in 1,000 mls @ 500 mls/hr IV TITRATE VANESSA. PRN Reason: Protocol. Last Admin: 07/18/16 10:38 Dose: 84 mls/hr. Oxytocin/ Lactated Ringer's (Pitocin In Lr 10 Units/1,000 Ml) 10 unit in 1,000 mls @ 12 mls/hr IV TITRATE VANESSA; 2 MUNITS/MIN. PRN Reason: Protocol. Last Titration: 02/24 02:40 Dose: 18 munits/min, 108 mls/hr. Ampicillin Sodium 2 gm/ Sodium ( Chloride) 100 mls @ 200 mls/hr IV Q6H VANESSA. Last Admin: 07/18/16 10:38 Dose: 200 mls/hr. Cefazolin Sodium/Dextrose 2 gm (/ Premix) 50 mls @ 100 mls/hr IV ONETIME ONE. Stop: 07/18/16 13:30. Nalbuphine HCl (Nubain) 10 mg IVPUSH Q2H PRN. PRN Reason: Pain (moderate 4-6). Ondansetron HCl (Zofran) 4 mg IVPUSH Q4H PRN. PRN Reason: Nausea/Vomiting. Sodium Chloride (Saline Flush) 10 ml FLUSH ASDIRECTED PRN. PRN Reason: Keep Vein Open. Discontinued Medications. Gentamicin Sulfate 200 mg/ (Sodium Chloride) 105 mls @ 200 mls/hr IV ONETIME ONE. Stop: 07/18/16 11:16. Last Admin: 07/18/16 10:54 Dose: 200 mls/hr. Misoprostol (Cytotec) Confirm Administered Dose 600 mcg .ROUTE .STK-MED ONE. Stop: 07/18/16 12:38. Misoprostol (Cytotec) 600 mcg PO NOW STA. Stop: 13:03. - Problem List & Annotations. (1) Preeclampsia. SNOMED Code(s): 456111682. Code(s): O14.90 - UNSPECIFIED PRE-ECLAMPSIA, UNSPECIFIED TRIMESTER Status: Acute Current Visit: Yes. Qualifiers: Trimester: third trimester Qualified Code(s): O14.93 - Unspecified pre-eclampsia, third trimester. (2) 40 weeks gestation of . SNOMED Code(s): 18438004. Code(s): Z3A.40 - 40 WEEKS GESTATION OF Status: Acute Current Visit: Yes. (3) Chorioamnionitis. SNOMED Code(s): 81517990. Code(s): O41.1290 - CHORIOAMNIONITIS, UNSP TRIMESTER, NOT APPLICABLE OR UNSP Status: Acute Current Visit: Yes. Qualifiers: Fetus number: single or unspecified fetus Trimester: third trimester Qualified Code(s): O41.1230 - Chorioamnionitis, third trimester, not applicable or unspecified. (4) Vaginal delivery. SNOMED Code(s): 218658608. Code(s): O80 - ENCOUNTER FOR FULL-TERM UNCOMPLICATED DELIVERY Status: Acute Current Visit: Yes. (5) Occiput posterior presentation of fetus. SNOMED Code(s): 14420839. Code(s): O64.0XX0 - OBSTRUCTED LABOR DUE TO INCMPL ROTATION OF HEAD, UNSP Status: Acute Current Visit: Yes. Qualifiers: Fetus number: single or unspecified fetus Qualified Code(s): O64.0XX0 - Obstructed labor due to incomplete rotation of head, not applicable or unspecified. (6) Retained placenta. SNOMED Code( s): 035141051. Code(s): O73.0 - RETAINED PLACENTA WITHOUT HEMORRHAGE Status: Acute Current Visit: Yes. Qualifiers: Retained placenta detail: unspecified Qualified Code(s): O73.0 - Retained placenta without hemorrhage. - Problem List Review. Problem List Initiated/Reviewed/Updated: Yes. - My Orders. Last 24 Hours: My Active Orders. 07/17/16 21:24. Acetaminophen [Tylenol] 650 mg PO Q4H PRN. Nalbuphine [Nubain] 10 mg IVPUSH Q2H PRN. Ondansetron [Zofran] 4 mg IVPUSH Q4H PRN. Sodium Chloride 0.9% [Saline Flush] 10 ml FLUSH ASDIRECTED PRN. Resuscitation Status Routine. 07/17/16 21:25. Patient Status [ADT] Routine. Activity as Tolerated [RC] PFP. Communication Order [RC] ASDIRECTED. Communication Order [RC] ASDIRECTED. Communication Order [RC] ASDIRECTED. Notify Provider [RC] ASDIRECTED. Vital Signs [RC] ASDIRECTED. Electronic Heart Tones Ext w TOCO [WOMSER] Routine. Electronic Heart Tones Internal [WOMSER] Per Unit Routine. Peripheral IV Insertion Adult [ OM.PC] Routine. 07/17/16 21:26. Peripheral IV Care [RC] . DIRECTED. 21:30. Lactated Ringers [Ringers, Lactated] 1,000 ml IV ASDIRECTED. Oxytocin/Lactated Ringers [Pitocin in LR 10 Units/1,000 ML] 10 unit in 1,000 ml IV TITRATE. Oxytocin/Lactated Ringers [Pitocin in LR 10 Units/1,000 ML] 10 unit in 1,000 ml IV TITRATE. 07/17/16 21:55. PATIENT RETYPE [BBK] Routine. TYPE AND SCREEN [BBK] Routine. 07/18/16 10:30. Ampicillin 2 gm Sodium Chloride 0.9% [Normal Saline] 100 ml IV Q6H. 07/18/16 13:01. ceFAZolin [Ancef ] 2 gm Premix Bag 1 bag IV ONETIME. 07/18/16 13:05. Patient Status Manage Transfer [TRANSFER] Routine. - Assessment. Assessment:: 30 y/o G2 now P1011 PPD#0 from at 40 1/7 wks. - Plan. Plan:: Preeclampsia. Monitor BP's closely. 1 week follow up in clinic for BP check. Delivery with Chorioamnionitis / Retained placenta. S/p Amp/Gent for chorioamnionitis and dose of ancef for manual extraction. Will continue abx for 24 hours. 600 mcg of cytotec given at delivery. Will continue cytotec for 24 hours. Monitor closely for signs of infection and heavy bleeding indicative of retained portions of placenta. S/p . Encourage breast feeding. Discharge home in 2 days. Comtinued Ancef until 1000 AM Thursday then started Generic Keflex 500 q6h will continue at home x10 days. Motrin 600 mg po q6h prn pain - Discharge Data Discharge Date: 07/20/16 Discharge Disposition: Home, Self-Care 01 Condition: Good - Discharge Diagnosis/Problem(s) (1) Pyrexia of unknown origin during the puerperium SNOMED Code(s): 558842611 ICD Code: O86.4 - PYREXIA OF UNKNOWN ORIGIN FOLLOWING DELIVERY Status: Acute Current Visit: Yes (2) 40 weeks gestation of SNOMED Code(s): 57203497 ICD Code: Z3A.40 - 40 WEEKS GESTATION OF Status: Acute Current Visit: Yes (3) Chorioamnionitis SNOMED Code(s): 80417177 ICD Code: O41.1290 - CHORIOAMNIONITIS, UNSP TRIMESTER, NOT APPLICABLE OR UNSP Status: Acute Current Visit: Yes Qualifiers: Fetus number: single or unspecified fetus Trimester: third trimester Qualified Code(s): O41.1230 - Chorioamnionitis, third trimester, not applicable or unspecified - Patient Summary/Data Complications: none other than noted Consults: none Hospital Course: uneventful - Patient Instructions Diet: Heart Healthy Diet Driving: Do Not Drive (x48 hrs) Showering/Bathing: September Shower Notify Provider of: Fever, Increased Pain, Swelling and Redness, Drainage, Nausea and/or Vomiting - Discharge Plan Prescriptions/Med Rec: Cephalexin [IJD: Cephalexin] 500 mg PO Q6HR #40 capsule Ibuprofen [IJD: Ibuprofen] 600 mg PO Q6H PRN #50 tablet PRN Reason: Pain Home Medications: Home Meds Citalopram [Celexa] 1 tab PO DAILY 08/14/14 [History] Ondansetron [Zofran ODT] 4 mg PO Q6H PRN #2 tab.dis 08/15/14 [Rx] Cephalexin [IJD: Cephalexin] 500 mg PO Q6HR #40 capsule 07/19/16 [Rx] Ibuprofen [IJD: Ibuprofen] 600 mg PO Q6H PRN #50 tablet 07/19/16 [Rx] Acetaminophen [Tylenol] 650 mg PO Q6H PRN #0 tablet 07/20/16 [Rx] Benzocaine/Menthol [Dermoplast Pain Relief [place]] 1 spray TOP ASDIRECTED PRN #0 canister 07/20/16 [Rx] Docusate Sodium [Colace] 100 mg PO BID PRN #0 cap 07/20/16 [Rx] Witch Farrah [Tucks] 1 pad TOP ASDIRECTED PRN #0 pad 07/20/16 [Rx] Referrals: Suyapa Rodriguez MD [Primary Care Provider] - (6 weeks) - Discharge Summary/Plan Comment DC Time >30 min.: No - Patient Data Vitals - Most Recent: Last Vital Signs Temp 97.3 F 07/20/16 04:40 Pulse 82 07/20/16 04:40 Resp 16 07/20/16 04:40 BP 117/74 07/20/16 04:40 Pulse Ox 99 07/20/16 04:40 Weight - Most Recent: 226 lb Med Orders - Current: Current Medications Acetaminophen (Tylenol) 650 mg PO Q4H PRN PRN Reason: mild pain or fever Last Admin: 07/19/16 19:10 Dose: 650 mg Acetaminophen/Codeine Phosphate (Tylenol With Codeine No.3 300mg/30mg) 2 tab PO Q4H PRN PRN Reason: Pain (moderate 4-6) Benzocaine/Menthol (Dermoplast Pain Relief [place]) 0 gm TOP ASDIRECTED PRN PRN Reason: Perineal Comfort Measure Last Admin: 07/18/16 16:28 Dose: 1 applic Cephalexin (Keflex) 500 mg PO Q6H [facility] Last Admin: 07/20/16 10:19 Dose: 500 mg Docusate Sodium (Colace) 100 mg PO BID PRN PRN Reason: Constipation Last Admin: 07/18/16 21:16 Dose: 100 mg Emollient Ointment (Lansinoh Hpa) 0 gm TOP ASDIRECTED PRN PRN Reason: Sore Nipples Ibuprofen (Motrin) 600 mg PO Q4H PRN PRN Reason: Mild pain or fever Last Admin: 07/20/16 04:30 Dose: 600 mg Witch Farrah (Tucks) 1 pad TOP ASDIRECTED PRN PRN Reason: Hemorrhoid pain Last Admin: 07/18/16 16:27 Dose: 1 applic Discontinued Medications Acetaminophen (Tylenol) 650 mg PO Q4H PRN PRN Reason: Pain (Mild 1-3) and fever Cephalexin (Keflex) 500 mg PO Q6HR VANESSA Last Admin: 07/19/16 13:46 Dose: Not Given Diphenhydramine HCl (Benadryl) 25 mg IVPUSH Q6H PRN PRN Reason: Itching Ephedrine Sulfate (Ephedrine Sulfate) 5 mg IVPUSH ASDIRECTED PRN PRN Reason: HYPOTENTSION Fentanyl (Sublimaze) 100 mcg EPIDUR Q3H PRN PRN Reason: PAIN Last Admin: 07/18/16 05:13 Dose: 100 mcg Fentanyl/Bupivacaine HCl (Fentanyl/Bupivacaine/Ns 2 Mcg-0.125% 100 Ml) 100 ml EPIDUR ASDIRECTED [facility] Last Admin: 07/18/16 05:13 Dose: 100 ml Lactated Ringer's (Ringers, Lactated) 1,000 mls @ 40 mls/hr IV ASDIRECTED [facility] Last Admin: 07/17/16 22:10 Dose: 40 mls/hr Oxytocin/Lactated Ringer's (Pitocin In Lr 10 Units/1,000 Ml) 10 unit in 1,000 mls @ 500 mls/hr IV TITRATE VANESSA PRN Reason: Protocol Last Admin: 07/18/16 10:38 Dose: 84 mls/hr Oxytocin/Lactated Ringer's (Pitocin In Lr 10 Units/1,000 Ml) 10 unit in 1,000 mls @ 12 mls/hr IV TITRATE VANESSA; 2 MUNITS/MIN PRN Reason: Protocol Last Titration: 07/18/16 02:40 Dose: 18 munits/min, 108 mls/hr Ampicillin Sodium 2 gm/ Sodium (Chloride) 100 mls @ 200 mls/hr IV Q6H [facility] Last Admin: 07/18/16 10:38 Dose: 200 mls/hr Gentamicin Sulfate 200 mg/ (Sodium Chloride) 105 mls @ 200 mls/hr IV ONETIME ONE Stop: 07/18/16 11:16 Last Admin: 07/18/16 10:54 Dose: 200 mls/hr Cefazolin Sodium/Dextrose 2 gm (/ Premix) 50 mls @ 100 mls/hr IV ONETIME ONE Stop: 07/18/16 13:30 Last Admin: 07/18/16 16:49 Dose: 100 mls/hr Cefazolin Sodium/Dextrose 1 gm (/ Premix) 50 mls @ 100 mls/hr IV Q6H [facility] Stop: 07/19/16 10:29 Last Admin: 07/19/16 09:25 Dose: 100 mls/hr Misoprostol (Cytotec) Confirm Administered Dose 600 mcg .ROUTE .STK-MED ONE Stop: 07/18/16 12:38 Last Admin: 07/18/16 20:28 Dose: Not Given Misoprostol (Cytotec) 600 mcg PO NOW STA Stop: 07/18/16 13:03 Last Admin: 07/18/16 12:45 Dose: 600 mcg Misoprostol (Cytotec) 400 mcg .XX Q8H VANESSA Stop: 07/19/16 05:16 Last Admin: 07/19/16 04:33 Dose: 400 mcg Nalbuphine HCl (Nubain) 10 mg IVPUSH Q2H PRN PRN Reason: Pain (moderate 4-6) Ondansetron HCl (Zofran) 4 mg IVPUSH Q4H PRN PRN Reason: Nausea/Vomiting Sodium Chloride (Saline Flush) 10 ml FLUSH ASDIRECTED PRN PRN Reason: Keep Vein Open *Q Meaningful Use (DIS) - VTE *Q VTE Criteria *Q: - Stroke *Q Stroke Criteria *Q: - AMI *Q AMI Criteria *Q:
== END 2016-07-20 16:30 | disposition home or self-care (01) | DRG 767 ==
LOC: JD.OB 20:47 → JD.OBCHECK 20:47 → JD.OB 21:25 → OBSVTOIN 07-18 12:23
PROVIDERS: ADMIT Obstetrics & Gynecology; ATTEND Obstetrics & Gynecology
PROC: 10E0XZZ Delivery of Products of Conception, External Approach (ICD-10-PCS; principal; 2016-07-18)
PROC: 0KQM0ZZ Repair Perineum Muscle, Open Approach (ICD-10-PCS; 2016-07-18)
PROC: 10907ZC Drainage of Amniotic Fluid, Therapeutic from Products of Conception, Via Natural or Artificial Opening (ICD-10-PCS; 2016-07-18)
PROC: 3E033VJ Introduction of Other Hormone into Peripheral Vein, Percutaneous Approach (ICD-10-PCS; 2016-07-18)
PROC: 00HU33Z Insertion of Infusion Device into Spinal Canal, Percutaneous Approach (ICD-10-PCS; 2016-07-18)
PROC: 3E0R3CZ (ICD-10-PCS; 2016-07-18)
PROC: 10D17ZZ Extraction of Products of Conception, Retained, Via Natural or Artificial Opening (ICD-10-PCS; 2016-07-18)
DX: O14.94 Unspecified pre-eclampsia, complicating childbirth (principal); O41.1230 Chorioamnionitis, third trimester, not applicable or unspecified; O70.1 Second degree perineal laceration during delivery; O69.89X0 Labor and delivery complicated by other cord complications, not applicable or unspecified; Z3A.40 40 weeks gestation of pregnancy; Z37.0 Single live birth
CPT/HCPCS: 01967; 36415; 80048; 81001; 84450; 84460; 85027; 86850; 86900; 86901; 88307; 88307-26; A9270-GY; J0290; J0690; J1580; J2590; J3010; J7030; J7120

== ENCOUNTER 2019-09-17 03:45 | Emergency (ER) | payer BC ==
[2019-09-17 03:58] VITALS: BP 120/69; PULSE 90
--- NOTE | 2019-09-17 04:30 | EDM.PDOC ---
ED HPI GENERAL MEDICAL PROBLEM - General Chief Complaint: Back Pain or Injury Stated Complaint: cyst in spine and pain cant sleep Time Seen by Provider: 09/17/19 04:01 Source of Information: Reports: Patient History Limitations: Reports: No Limitations - History of Present Illness INITIAL COMMENTS - FREE TEXT/NARRATIVE: This is a 33-year-old female. 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 It is not causing any symptoms or neurological deficits. She has seen a doctor specialist in [place] that is monitoring her on a regular basis. Apparently 3 days ago she had an adjustment with a chiropractor here in town and it was a rather rough adjustment and she was very tight tense since then she has been having spasms and throbbing pain and pressure in her lower thoracic area. Is been so uncomfortable she is having a hard time sitting or laying down and she is not sleeping well at night. Also known to have an occult spina bifida and a bulge at L4-L5 in the lumbar spine but no herniated disc. She is receiving physical therapy as well because she had some SI joint problems with her last and they are thinking about having another child and wanting physical therapy to correct that area down there as best as possible before she gets . She denies any other acute symptoms. She did bring her MRI report for the C-spine and T-spine which I reviewed with her. Back Pain Score (Numeric/FACES): 6 - Related Data Allergies Allergy/AdvReac Type Severity Reaction Status Date / Time doxycycline Allergy Severe Diarrhea Verified 09/17/19 04:00 Home Meds: Home Meds Citalopram [Celexa] 1 tab PO DAILY 08/14/14 [History] Ibuprofen [IJD: Ibuprofen] 600 mg PO Q6H PRN #50 tablet 07/19/16 [Rx] Past Medical History - Past Health History Medical/Surgical History: Denies Medical/Surgical History ED[employer]ASTER History: Reports: , Spontaneous Musculoskeletal History: Reports: Back Pain, Chronic Other Neuro History: Bulging disc L4 & L5, spina Bifida Psychiatric History: Reports: Anxiety, Depression Social & Family History - Family History Family Medical History: Noncontributory - Tobacco Use Smoking Status *Q: Never Smoker - Caffeine Use Caffeine Use: Reports: None - Recreational Drug Use Recreational Drug Use: No ED ROS GENERAL - Review of Systems Review Of Systems: See Below Constitutional: Denies: Fever, Chills HEENT: Reports: No Symptoms Respiratory: Reports: No Symptoms Cardiovascular: Reports: No Symptoms Endocrine: Reports: No Symptoms GI/Abdominal: Reports: No Symptoms : Reports: No Symptoms Musculoskeletal: Reports: Back Pain Skin: Reports: No Symptoms Neurological: Denies: Numbness, Tingling, Weakness Psychiatric: Reports: No Symptoms Hematologic/Lymphatic: Reports: No Symptoms ED EXAM, UPPER BACK/NECK PAIN - Physical Exam Exam: See Below Exam Limited By: No Limitations General Appearance: Alert, WD/WN, No Apparent Distress Eye Exam: Bilateral Eye: Normal Inspection Ears Exam: Normal External Exam Throat/Mouth Exam: Other (Patient has no nasal or mouth or teeth complaints and is wearing a mask) Head Exam: Normocephalic Neck Exam: Full Range of Motion, Other (There is no cervical tenderness on palpation or with movement) Cardiovascular/Respiratory: Regular Rate, Rhythm, No Respiratory Distress GI/Abdominal: Other (She denies any abdominal tenderness) Back Exam: Normal Inspection, Other (Complains of soreness in the mid and lower thoracic area on palpation but there is no midline spine pain. She is able to sit forward and bend forward and twist and turn with a lot of stiffness and soreness but she still able to do it) Extremities: Normal Inspection, Normal Range of Motion Neurologic: No Motor/Sensory Deficits, Alert, Normal Mood/Affect, Oriented x 3 Psychiatric: Normal Affect, Normal Mood Skin Exam: Normal Color, Warm/Dry Course - Vital Signs Last Recorded V/S: Last Vital Signs Temp 97.8 F 09/17/19 03:52 Pulse 90 09/17/19 03:52 Resp 18 09/17/19 03:52 BP 120/69 09/17/19 03:52 Pulse Ox 100 09/17/19 03:52 Departure - Departure Time of Disposition: 04:30 Disposition: Home, Self-Care 01 Condition: Fair Clinical Impression: Sprain thoracic region, Spasm of thoracic back muscle - Discharge Information *PRESCRIPTION DRUG MONITORING PROGRAM REVIEWED*: No *COPY OF PRESCRIPTION DRUG MONITORING REPORT IN PATIENT LADARIUS: No Instructions: Muscle Strain, [id number], Thoracic Strain Referrals: Elizabeth Eubanks MD [Primary Care Provider] - Additional Instructions: Get your medications out of the [facility] machine in the lobby before you go home , take the Flexeril as needed for the muscle tightness and tenseness but realized this will make you sleepy, use the tramadol as needed for the pain, continue with your physical therapy and gentle stretching and exercises, see your chiropractor on Thursday to see if maybe he can do a more gentle adjustment and ease up some of the symptoms, return to the ER as needed Sepsis Event Note - Evaluation Sepsis Screening Result: No Definite Risk - Focused Exam Vital Signs: Vital Signs Temp Pulse Resp BP Pulse Ox 09/17/19 03:52 97.8 F 90 18 120/69 100 Date Exam was Performed: 09/17/19 Time Exam was Performed: 04:25
== END 2019-09-17 04:41 | disposition home or self-care (01) ==
LOC: JD.ED 03:45
DX: S23.3XXA Sprain of ligaments of thoracic spine, initial encounter (principal); M62.830 Muscle spasm of back; F41.9 Anxiety disorder, unspecified; F32.9 Major depressive disorder, single episode, unspecified; Z88.0 Allergy status to penicillin; Z79.899 Other long term (current) drug therapy; X58.XXXA Exposure to other specified factors, initial encounter
CPT/HCPCS: 99283

== ENCOUNTER 2020-01-16 23:20 | Emergency (ER) | payer BC ==
[2020-01-16 23:46] VITALS: BP 141/89; PULSE 110
--- NOTE | 2020-01-17 00:08 | EDM.PDOC ---
ED HPI GENERAL MEDICAL PROBLEM - General Chief Complaint: Fever Stated Complaint: cough fever sob Time Seen by Provider: 01/16/20 23:35 Source of Information: Reports: Patient History Limitations: Reports: No Limitations - History of Present Illness INITIAL COMMENTS - FREE TEXT/NARRATIVE: Mrs. Todd is a very pleasant 34-year-old woman who now presents to the ED with a complaint of body aches, fever, chills, and cough. She states that she felt fatigued on afternoon, 01/12/2020, after grocery shopping. She states that she then developed body aches, sometimes severe, along with chills on 01/13/2020, and she believes that she may have started to have a fever at that time, as well. She has had a cough, occasionally productive of clear sputum, although denies having dyspnea. She states that her cough is worse when supine, associated with increased breath sounds and possible wheezing. She recorded a temperature of 103.6 degrees yesterday, 01/15/2020. No nausea, vomiting, or diarrhea. Her oral intake is been normal. The patient states that she has been alternating Tylenol and ibuprofen every 3 hours. She also used a leftover albuterol MDI around 22:30 tonight. The patient states that she has had similar symptoms in the past, due to influenza, although she states that her current body aches are worse than ever before. The patient is concerned that she may have acquired COVID-19. 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 Here in the ED, the patient's initial BP is found to be mildly elevated at 1 41/89, with a tachycardia of 110 bpm. She is afebrile, saturating 97% on room air. She does not appear to be in any distress. Up until , 01/12/2020, the patient denies having a recent fever, chills, sore throat, ear pain, nasal or sinus congestion, cough, dyspnea, chest pain, palpitations, nausea, vomiting, constipation, diarrhea, abdominal pain, urinary symptoms, recent weight gain or weight loss, recent bloody bowel movements or black bowel movements, recent joint aches, headaches, or rashes. The patient's PCP is Dr. Elizabeth Keating. Her Forensic Anthropologist is Dr. Suyapa Rodriguez. 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) Psychiatric History: Reports: Anxiety (untreated), Depression (untreated) Endocrine/Metabolic History: Reports: Obesity/BMI 30+ - Past Surgical History HEENT Surgical History: Reports: Oral Surgery (wisdom teeth extraction) Dermatological Surgical History: Reports: Other (See Below) (Pilonidal cyst excision) Social & Family History - Family History Family Medical History: Noncontributory - Tobacco Use Smoking Status *Q: Never Smoker - Caffeine Use Caffeine Use: Reports: None - Alcohol Use Alcohol Use History: Yes Alcohol Use Frequency: Socially - Recreational Drug Use Recreational Drug Use: No - Living Situation & Occupation Living situation: Reports: , with Spouse, with Family (1 child) 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 ED EXAM, GENERAL - Physical Exam Exam: See Below Exam Limited By: No Limitations General Appearance: Alert, WD/WN, No Apparent Distress Eye Exam: Bilateral Eye: EOMI, Normal Inspection Ears: Normal External Exam, Hearing Grossly Normal Nose: Normal Inspection Throat/Mouth: Normal Inspection, Normal Lips, Normal Voice, No Airway Compromise Head: Atraumatic, Normocephalic Neck: Normal Inspection, Full Range of Motion Respiratory/Chest: No Respiratory Distress, Lungs Clear, Normal Breath Sounds (no change between sitting and supine), No Accessory Muscle Use. No: Decreased Breath Sounds, Crackles, Rhonchi, Wheezing, Stridor, Prolonged Expiration Cardiovascular: Normal Peripheral Pulses, Regular Rate, Rhythm, No Edema, No Gallop, No JVD, No Murmur, No Rub Peripheral Pulses: 3+: Radial (L), Radial (R) GI/Abdominal: Normal Bowel Sounds, Soft, Non-Tender, No Organomegaly, No Distention, No Abnormal Bruit, No Mass (Female) Exam: Deferred Rectal (Female) Exam: Deferred Back Exam: Normal Inspection, Full Range of Motion, NT Extremities: Normal Inspection, Normal Range of Motion, No Pedal Edema, Normal Capillary Refill Neurological: Alert, Oriented, Normal Cognition, No Motor/Sensory Deficits Psychiatric: Normal Affect Skin Exam: Warm, Dry, Intact, Normal Color, No Rash EKG INTERPRETATION EKG Date: 01/17/20 Time: 00:25 Rhythm: Other (Sinus tachycardia) Rate (Beats/Min): 103 [place]: Normal P-Wave: Present QRS: Normal ST-T: Normal QT: Normal Comparison: NA - No Prior EKG Course - Vital Signs Last Recorded V/S: Last Vital Signs Temp 36.9 C 01/17/20 02:46 Pulse 110 H 01/16/20 23:42 Resp 16 01/16/20 23:42 BP 141/89 H 01/16/20 23:42 Pulse Ox 97 01/16/20 23:42 - Orders/Labs/Meds Orders: Active Orders 24 hr Category Date Time Status EKG Documentation Completion [RC] STAT Care 01/17/20 00:00 Active Chest 2V [CR] Stat Exams 01/17/20 00:00 Taken CULTURE BLOOD [BC] Stat Lab 01/17/20 01:00 Received CULTURE BLOOD [BC] Stat Lab 01/17/20 01:10 Received Blood Culture x2 Reflex Set [OM.PC] Stat Oth 01/17/20 00:01 Ordered Labs: Laboratory Tests 01/17/20 01/17/20 01/17/20 Range/Units 01:00 01:00 01:00 WBC 4.70 (3.98-10.04) K/mm3 RBC 4.97 (3.98-5.22) M/mm3 Hgb 13.5 D (11.2-15.7) gm/dl Hct 40.4 (34.1-44.9) % MCV 81.3 D (79.4-94.8) fl MCH 27.2 (25.6-32.2) pg MCHC 33.4 (32.2-35.5) g/dl RDW Std Deviation 38.0 (36.4-46.3) fL Plt Count 186 (182-369) K/mm3 MPV 10.2 (9.4-12.3) fl Neutrophils % (Manual) 83 H (40-60) % Band Neutrophils % 0 (0-10) % Lymphocytes % (Manual) 14 L (20-40) % Atypical Lymphs % 0 % Monocytes % (Manual) 3 (2-10) % Eosinophils % (Manual) 0 L (0.7-5.8) % Basophils % (Manual) 0 L (0.1-1.2) Platelet Estimate Adequate Plt Morphology Comment Normal Poikilocytosis 1+ slight RBC Morph Comment Not Reportable PT (9.7-11.7) SECONDS INR APTT (22-31) SECONDS D-Dimer, Quantitative (0.19-0.50) mg/L Sodium 141 (136-145) mEq/L Potassium 3.6 (3.5-5.1) mEq/L Chloride 105 (98-107) mEq/L Carbon Dioxide 24 (21-32) mEq/L Anion Gap 15.6 H (5-15) BUN 3 L (7-18) mg/dL Creatinine 0.8 (0.55-1.02) mg/dL Est Cr Clr Drug Dosing 100.90 mL/min Estimated GFR (MDRD) > 60 (>60) mL/min BUN/Creatinine Ratio 3.8 L (14-18) Glucose 100 (74-106) mg/dL Lactic Acid 0.8 (0.4-2.0) mmol/L Calcium 8.6 (8.5-10.1) mg/dL Magnesium 1.8 (1.8-2.4) mg/dl Ferritin (8-252) ng/ml Total Bilirubin 0.2 (0.2-1.0) mg/dL AST 15 (15-37) U/L ALT 15 (14-59) U/L Alkaline Phosphatase 65 (46-116) U/L Lactate Dehydrogenase 174 (81-234) U/L Creatine Kinase 48 (26-192) U/L Troponin I < 0.017 (0.00-0.056) ng/mL C-Reactive Protein 11.2 H* (<1.0) mg/dL NT-Pro-B Natriuret Pep (0-125) pg/mL Total Protein 7.9 (6.4-8.2) g/dl Albumin 3.8 (3.4-5.0) g/dl Globulin 4.1 gm/dL Albumin/Globulin Ratio 0.9 L (1-2) COVID-19 ([facility]) (NEGATIVE) 01/17/20 01/17/20 01/17/20 Range/Units 01:00 01:00 01:00 WBC (3.98-10.04) K/mm3 RBC (3.98-5.22) M/mm3 Hgb (11.2-15.7) gm/dl Hct (34.1-44.9) % MCV (79.4-94.8) fl MCH (25.6-32.2) pg MCHC (32.2-35.5) g/dl RDW Std Deviation (36.4-46.3) fL Plt Count (182-369) K/mm3 MPV (9.4-12.3) fl Neutrophils % (Manual) (40-60) % Band Neutrophils % (0-10) % Lymphocytes % (Manual) (20-40) % Atypical Lymphs % % Monocytes % (Manual) (2-10) % Eosinophils % (Manual) (0.7-5.8) % Basophils % (Manual) (0.1-1.2) Platelet Estimate Plt Morphology Comment Poikilocytosis RBC Morph Comment PT 11.3 (9.7-11.7) SECONDS INR 1.06 APTT 30 (22-31) SECONDS D-Dimer, Quantitative 0.43 (0.19-0.50) mg/L Sodium (136-145) mEq/L Potassium (3.5-5.1) mEq/L Chloride (98-107) mEq/L Carbon Dioxide (21-32) mEq/L Anion Gap (5-15) BUN (7-18) mg/dL Creatinine (0.55-1.02) mg/dL Est Cr Clr Drug Dosing mL/min Estimated GFR (MDRD) (>60) mL/min BUN/Creatinine Ratio (14-18) Glucose (74-106) mg/dL Lactic Acid (0.4-2.0) mmol/L Calcium (8.5-10.1) mg/dL Magnesium (1.8-2.4) mg/dl Ferritin 55 (8-252) ng/ml Total Bilirubin (0.2-1.0) mg/dL AST (15-37) U/L ALT (14-59) U/L Alkaline Phosphatase (46-116) U/L Lactate Dehydrogenase (81-234) U/L Creatine Kinase (26-192) U/L Troponin I (0.00-0.056) ng/mL C-Reactive Protein (<1.0) mg/dL NT-Pro-B Natriuret Pep 69 (0-125) pg/mL Total Protein (6.4-8.2) g/dl Albumin (3.4-5.0) g/dl Globulin gm/dL Albumin/Globulin Ratio (1-2) COVID-19 ([facility]) (NEGATIVE) 01/17/20 Range/Units 02:50 WBC (3.98-10.04) K/mm3 RBC (3.98-5.22) M/mm3 Hgb (11.2-15.7) gm/dl Hct (34.1-44.9) % MCV (79.4-94.8) fl MCH (25.6-32.2) pg MCHC (32.2-35.5) g/dl RDW Std Deviation (36.4-46.3) fL Plt Count (182-369) K/mm3 MPV (9.4-12.3) fl Neutrophils % (Manual) (40-60) % Band Neutrophils % (0-10) % Lymphocytes % (Manual) (20-40) % Atypical Lymphs % % Monocytes % (Manual) (2-10) % Eosinophils % (Manual) (0.7-5.8) % Basophils % (Manual) (0.1-1.2) Platelet Estimate Plt Morphology Comment Poikilocytosis RBC Morph Comment PT (9.7-11.7) SECONDS INR APTT (22-31) SECONDS D-Dimer, Quantitative (0.19-0.50) mg/L Sodium (136-145) mEq/L Potassium (3.5-5.1) mEq/L Chloride (98-107) mEq/L Carbon Dioxide (21-32) mEq/L Anion Gap (5-15) BUN (7-18) mg/dL Creatinine (0.55-1.02) mg/dL Est Cr Clr Drug Dosing mL/min Estimated GFR (MDRD) (>60) mL/min BUN/Creatinine Ratio (14-18) Glucose (74-106) mg/dL Lactic Acid (0.4-2.0) mmol/L Calcium (8.5-10.1) mg/dL Magnesium (1.8-2.4) mg/dl Ferritin (8-252) ng/ml Total Bilirubin (0.2-1.0) mg/dL AST (15-37) U/L ALT (14-59) U/L Alkaline Phosphatase (46-116) U/L Lactate Dehydrogenase (81-234) U/L Creatine Kinase (26-192) U/L Troponin I (0.00-0.056) ng/mL C-Reactive Protein (<1.0) mg/dL NT-Pro-B Natriuret Pep (0-125) pg/mL Total Protein (6.4-8.2) g/dl Albumin (3.4-5.0) g/dl Globulin gm/dL Albumin/Globulin Ratio (1-2) COVID-19 ([facility]) Negative (NEGATIVE) Meds: Medications Discontinued Medications Generic Name Dose Route Start Last Admin Trade Name Freq PRN Reason Stop Dose Admin Acetaminophen 650 mg 01/17/20 02:39 01/17/20 02:46 Tylenol PO 01/17/20 02:40 650 mg NOW ONE Administration - Re-Assessments/Exams Free Text/Narrative Re-Assessment/Exam: 01/17/20 00:03 As above, the patient developed significant fatigue evening, 01/12/2020, then developed significant body aches, chills, and a possible fever on 01/13/2020, along with a cough occasionally productive of clear sputum, and a fever of 103.6 degrees yesterday. She is concerned that she may have acquired COVID-19. She is afebrile, but tachycardic. While she states that her breathing becomes louder when she is supine, symptoms concerning for bronchitis, I find no crackles, rhonchi, or wheezing on auscultation, whether sitting up or supine. I have ordered a work-up that includes blood work, 2 sets of blood cultures, a chest x-ray, an ECG, and a test for the SARS-CoV-2 virus. 01/17/20 01:02 Two-view chest radiograph reviewed. The patient's brassiere was not removed. The cardiac silhouette is within normal limits. No pulmonary vascular congestion. No pleural effusions. There is an opacity over the right middle or lower lobe seen on the PA view, however, there is no corresponding infiltrate is seen on the lateral projection, indicating that the opacity may be due to fibrodense breast tissue. No pneumothorax. Formal read per the Radiologist pending. 01/17/20 02:40 Notified by Zak JACOBS that the patient is requesting Tylenol for body aches. She is afebrile. I have ordered 650 mg of acetaminophen. 01/17/20 03:30 Test results discussed with the patient. As above, today's work-up, with the exception of an elevated CRP, is entirely negative. I explained to the patient that I suspect that she is suffering from a viral illness, but I cannot put her name on that virus. It is possible that the patient is suffering from COVID-19, although with a negative d-dimer, LDH, ferritin, CPK, etc. in addition to a negative swab for the SARS-CoV-2 virus, it is less likely that she is suffering from COVID-19. I recommended that she stay adequately hydrated and take [id number] ibuprofen as needed for discomfort. If her symptoms persist, I would like her to follow-up with her PCP for further evaluation. Departure - Departure Time of Disposition: 03:32 Disposition: Home, Self-Care 01 Condition: Good Clinical Impression: Viral illness - Discharge Information *PRESCRIPTION DRUG MONITORING PROGRAM REVIEWED*: Not Applicable *COPY OF PRESCRIPTION DRUG MONITORING REPORT IN PATIENT LADARIUS: Not Applicable Referrals: Elizabeth Eubanks MD [Primary Care Provider] - Suyapa Rodriguez MD [Physician] - Forms: ED Department Discharge Additional Instructions: You were seen in the emergency room for body aches, chills, fever, and cough since 01/13/2020. Work-up in the ER included blood work, 2 sets of blood cultures, a chest x-ray, an ECG, and a swab for the SARS-CoV-2 virus. With the exception of a modestly elevated CRP (a marker of inflammation), your entire work-up was unremarkable. Based on your history, physical exam, and ER tests, you are most likely suffering from a viral illness, although we do not know the name of that virus. We recommend that you stay adequately hydrated and take [id number] ibuprofen, 3 tablets (600 mg) up to every 8 hours, with food, as needed for discomfort. If your symptoms persist, we recommend that you follow-up with your PCP, Dr. Elizabeth Keating, for further evaluation. If any other problems, please do not hesitate to return to the ER. Sepsis Event Note (ED) - Evaluation Sepsis Screening Result: No Definite Risk - Focused Exam Vital Signs: Vital Signs Temp Temp Pulse Resp BP Pulse Ox 01/17/20 02:46 36.9 C 01/17/20 02:06 36.9 C 01/16/20 23:42 36.9 C 110 H 16 141/89 H 97 - My Orders Last 24 Hours: My Active Orders 01/17/20 00:00 EKG Documentation Completion [RC] STAT Chest 2V [CR] Stat 01/17/20 00:01 Blood Culture x2 Reflex Set [OM.PC] Stat 01/17/20 01:00 CULTURE BLOOD [BC] Stat 01/17/20 01:10 CULTURE BLOOD [BC] Stat - Assessment/Plan Last 24 Hours: My Active Orders 01/17/20 00:00 EKG Documentation Completion [RC] STAT Chest 2V [CR] Stat 01/17/20 00:01 Blood Culture x2 Reflex Set [OM.PC] Stat 01/17/20 01:00 CULTURE BLOOD [BC] Stat 01/17/20 01:10 CULTURE BLOOD [BC] Stat
[2020-01-17] MEDS ORDERED: Acetaminophen 325 MG Tab PO ONE (02:39)
--- NOTE | 2020-01-17 06:30 | CR ---
Chest: 2 views of the chest were obtained. Comparison: No prior chest imaging is available. Heart size and mediastinum are normal. Increased density within the right base is seen. Lungs otherwise are clear. Bony structures are unremarkable. Impression: 1. Findings which are felt compatible with right lower lobe pneumonia. Diagnostic code #3 This report was dictated in MDT
== END 2020-01-17 03:40 | disposition home or self-care (01) ==
LOC: JD.ED 23:20
DX: B34.9 Viral infection, unspecified (principal); F32.9 Major depressive disorder, single episode, unspecified; E66.9 Obesity, unspecified; Z68.31 Body mass index [BMI] 31.0-31.9, adult; Z79.899 Other long term (current) drug therapy; Z20.828 Contact with and (suspected) exposure to other viral communicable diseases; Z88.1 Allergy status to other antibiotic agents
CPT/HCPCS: 36415; 71046; 80053; 82550; 82728; 83605; 83615; 83735; 83880; 84484; 85007; 85027; 85379; 85610; 85730; 86140; 87040; 87635; 93005; 99285; A9270; 93010; 99282; U0002

== ENCOUNTER 2025-01-11 08:48 | Emergency (ER) | payer BC ==
[2025-01-11 10:08] LABS: BASOPHILS ABSOLUTE AUTO 0.0 K/mm3 (0.0-0.2); BASOPHILS PERCENT AUTO 0.9 % (0.0-1.0); EOSINOPHILS ABSOLUTE AUTO 0.1 K/mm3 (0.0-0.4); EOSINOPHILS PERCENT AUTO 3.1 % (0.0-6.0); IMMATURE GRAN ABSOLUTE AUTO 0.01 K/mm3 (0.00-0.05); IMMATURE GRAN PERCENT AUTO 0.2 % (0.0-0.4); LYMPHOCYTES ABSOLUTE AUTO 1.7 K/mm3 (1.0-4.8); LYMPHOCYTES PERCENT AUTO 36.8 % (24.0-44.0); MEAN PLATELET VOLUME 9.5 fl (9.4-12.3); MONOCYTES ABSOLUTE AUTO 0.3 K/mm3 (0.0-0.8); MONOCYTES PERCENT AUTO 6.1 % (0.0-8.0); NEUTROPHILS ABSOLUTE AUTO 2.4 K/mm3 (1.8-7.7); NEUTROPHILS PERCENT AUTO 52.9 % (41.0-71.0); NRBC ABSOLUTE 0.00 (0.00-0.02); NRBC PERCENT 0.0 % (0.0-0.2); PLATELET COUNT,PLT 291 K/mm3 (150-400); RED BLOOD CELL COUNT 4.97 M/mm3 (4.10-5.30); WHITE BLOOD CELL COUNT,WBC 4.57 K/mm3 (3.9-11.3)
[2025-01-11 10:20] LABS: BUPRENORPHINE SCREEN,URINE NEGATIVE (CUTOFF=10); METHADONE SCREEN, URINE NEGATIVE (CUTOFF=200); METHAMPHETAMINES SCREEN, URINE NEGATIVE (CUTOFF=500); OXYCODONE SCREEN,URINE NEGATIVE (CUT0FF=100); THC SCREEN,URINE 20 NG/ML NEGATIVE (CUTOFF=50)
[2025-01-11 10:22] LABS: AMPHETAMINES SCREEN, URINE NEGATIVE (CUTOFF=500)
[2025-01-11 10:29] LABS: A/G RATIO 1.1 (1-2); ALANINE AMINOTRANSFERASE,ALT 78.0 U/L (14-59); ASPARTATE AMNIOTRANSFERASE,AST 38.0 U/L (15-37); BILIRUBIN TOTAL 0.5 mg/dL (0.2-1.0); BLOOD UREA NITROGEN,BUN 8.0 mg/dL (7-18); CARBON DIOXIDE,CO2 28.0 mEq/L (21-32); CHLORIDE,CL 105.0 mEq/L (98-107); CREATINE KINASE,CK 53.0 U/L (26-192); CREATININE 0.7 mg/dL (0.55-1.02); EST CRCL DRUG DOSING (CG) 109.92 mL/min; ESTIMATED GFR 113.0 mL/min (>60); GLUCOSE RANDOM 95.0 mg/dL (70-99); POTASSIUM,K 3.9 mEq/L (3.5-5.1); PROTEIN TOTAL,TP 7.4 g/dl (6.4-8.2); SODIUM,NA 139.0 mEq/L (136-145)
[2025-01-11] MEDS: Ondansetron 4 MG/2 ML SDV IVPUSH ONE (10:43)
[2025-01-11 15:07] VITALS: BP 130/76; PULSE 69
== END 2025-01-11 12:16 | disposition home or self-care (01) ==
LOC: JD.ED 08:48
DX: N92.1 Excessive and frequent menstruation with irregular cycle (principal); E66.9 Obesity, unspecified; Z79.899 Other long term (current) drug therapy; Z88.1 Allergy status to other antibiotic agents; Z68.34 Body mass index [BMI] 34.0-34.9, adult
CPT/HCPCS: 36415; 80053; 80306; 82550; 83735; 84703; 85025; 96361; 96374; 99284; A9270; J2405; J7030

== ENCOUNTER 2025-03-21 06:30 | Day surgery (SDC) | payer BC ==
[~2025-03-21 06:30] MED LIST: Sodium Chloride 0.9% 10 ML Syringe FLUSH PRN; Sodium Chloride 0.9% 10 ML Syringe FLUSH SCH
[2025-03-21 06:49] LABS: BASOPHILS ABSOLUTE AUTO 0.1 K/mm3 (0.0-0.2); BASOPHILS PERCENT AUTO 0.9 % (0.0-1.0); EOSINOPHILS ABSOLUTE AUTO 0.3 K/mm3 (0.0-0.4); EOSINOPHILS PERCENT AUTO 5.0 % (0.0-6.0); IMMATURE GRAN ABSOLUTE AUTO 0.01 K/mm3 (0.00-0.05); IMMATURE GRAN PERCENT AUTO 0.2 % (0.0-0.4); LYMPHOCYTES ABSOLUTE AUTO 2.3 K/mm3 (1.0-4.8); LYMPHOCYTES PERCENT AUTO 36.7 % (24.0-44.0); MEAN PLATELET VOLUME 9.4 fl (9.4-12.3); MONOCYTES ABSOLUTE AUTO 0.4 K/mm3 (0.0-0.8); MONOCYTES PERCENT AUTO 6.5 % (0.0-8.0); NEUTROPHILS ABSOLUTE AUTO 3.2 K/mm3 (1.8-7.7); NEUTROPHILS PERCENT AUTO 50.7 % (41.0-71.0); NRBC ABSOLUTE 0.00 (0.00-0.02); NRBC PERCENT 0.0 % (0.0-0.2); PLATELET COUNT,PLT 332 K/mm3 (150-400); RED BLOOD CELL COUNT 5.15 M/mm3 (4.10-5.30); WHITE BLOOD CELL COUNT,WBC 6.35 K/mm3 (3.9-11.3)
[2025-03-21] MEDS ORDERED: fentaNYL 100 MCG/2 ML SDV IVPUSH PRN (06:51)
[2025-03-21] MEDS ORDERED: Ondansetron 4 MG/2 ML SDV IVPUSH PRN (06:51)
[2025-03-21] MEDS ORDERED: propofoL 1,000 MG/100 ML 100 ML ONE (06:57)
[2025-03-21 07:05] LABS: BLOOD UREA NITROGEN,BUN 9 mg/dL (7-18); CARBON DIOXIDE,CO2 22 mEq/L (21-32); CHLORIDE,CL 105 mEq/L (98-107); CREATININE 0.7 mg/dL (0.55-1.02); ESTIMATED GFR 113 mL/min (>60); GLUCOSE RANDOM 107 mg/dL (70-99); POTASSIUM,K 3.7 mEq/L (3.5-5.1); SODIUM,NA 140 mEq/L (136-145)
[2025-03-21] MEDS ORDERED: Ketamine HCL/NACL, ISO-OSM 50 MG/5 ML Syringe ONE (07:09)
[2025-03-21] MEDS ORDERED: fentaNYL 250 MCG/5 ML SDV ONE (07:09)
[2025-03-21] MEDS ORDERED: Midazolam 1 MG/ML 2 ML SDV ONE (07:09)
[2025-03-21] MEDS ORDERED: Ondansetron 4 MG/2 ML SDV ONE (07:11)
[2025-03-21] MEDS ORDERED: Glycopyrrolate 0.2 MG/ML 2 ML SDV ONE (07:11)
[2025-03-21] MEDS ORDERED: dexmedeTOMIDine HCl 200 MCG/2 ML SDV ONE (07:11)
[2025-03-21] MEDS ORDERED: Dexamethasone 4 MG/ML 5 ML MDV ONE (07:11)
[2025-03-21] MEDS ORDERED: Ketorolac 30 MG/ML SDV ONE (07:11)
[2025-03-21] MEDS ORDERED: Esmolol 100 MG/10 ML SDV ONE (07:11)
[2025-03-21] MEDS: Lactated Ringers 1,000 ML IV SCH (07:20)
[2025-03-21] MEDS: Scopalamine 1mg/3day Transdermal Patch TOP ONE (07:24)
[2025-03-21] MEDS ORDERED: Lactated Ringers 1,000 ML ONE ×2 (07:47→10:08)
[2025-03-21] MEDS: Lidocaine 1% with EPINEPHrine 1:100,000 20 ML MDV ONE (08:29)
[2025-03-21] MEDS ORDERED: propofoL 500 MG/50 ML 50 ML ONE (08:42)
[2025-03-21] MEDS ORDERED: Propofol 200 MG/20 ML SDV ONE (09:33)
[2025-03-21] MEDS ORDERED: ePHEDrine 50 MG/ML SDV ONE (10:05)
[2025-03-21] MEDS: Acetaminophen/oxyCODONE 325-5 MG Tab PO PRN (11:54)
[2025-03-21 12:06] VITALS: PULSE 98
[2025-03-21 12:54] VITALS: BP 124/72
== END 2025-03-21 12:50 | disposition home or self-care (01) ==
LOC: JD.SDS 06:30
PROVIDERS: ATTEND Obstetrics & Gynecology
DX: D25.2 Subserosal leiomyoma of uterus (principal); N80.03 Adenomyosis of the uterus; K21.9 Gastro-esophageal reflux disease without esophagitis; Z79.899 Other long term (current) drug therapy
CPT/HCPCS: 00944; 36415; 80048; 81025; 85025; 86850; 86900; 86901; A9270-GY; J0665; J0690; J1100; J1596; J1805; J1885; J2003; J2004; J2250; J2405; J2704; J3010; J3490; J7120

== ENCOUNTER 2025-04-04 20:02 | Emergency (ER) | payer BC ==
[2025-04-04 20:31] LABS: BASOPHILS ABSOLUTE AUTO 0.1 K/mm3 (0.0-0.2); BASOPHILS PERCENT AUTO 0.7 % (0.0-1.0); EOSINOPHILS ABSOLUTE AUTO 0.5 K/mm3 (0.0-0.4); EOSINOPHILS PERCENT AUTO 5.4 % (0.0-6.0); IMMATURE GRAN ABSOLUTE AUTO 0.03 K/mm3 (0.00-0.05); IMMATURE GRAN PERCENT AUTO 0.4 % (0.0-0.4); LYMPHOCYTES ABSOLUTE AUTO 2.8 K/mm3 (1.0-4.8); LYMPHOCYTES PERCENT AUTO 32.2 % (24.0-44.0); MEAN PLATELET VOLUME 9.5 fl (9.4-12.3); MONOCYTES ABSOLUTE AUTO 0.6 K/mm3 (0.0-0.8); MONOCYTES PERCENT AUTO 6.7 % (0.0-8.0); NEUTROPHILS ABSOLUTE AUTO 4.7 K/mm3 (1.8-7.7); NEUTROPHILS PERCENT AUTO 54.6 % (41.0-71.0); NRBC ABSOLUTE 0.00 (0.00-0.02); NRBC PERCENT 0.0 % (0.0-0.2); PLATELET COUNT,PLT 353 K/mm3 (150-400); RED BLOOD CELL COUNT 4.29 M/mm3 (4.10-5.30); WHITE BLOOD CELL COUNT,WBC 8.55 K/mm3 (3.9-11.3)
[2025-04-04 20:53] LABS: A/G RATIO 1.0 (1-2); ALANINE AMINOTRANSFERASE,ALT 53.0 U/L (14-59); ASPARTATE AMNIOTRANSFERASE,AST 21.0 U/L (15-37); BILIRUBIN TOTAL 0.3 mg/dL (0.2-1.0); BLOOD UREA NITROGEN,BUN 13.0 mg/dL (7-18); CARBON DIOXIDE,CO2 27.0 mEq/L (21-32); CHLORIDE,CL 106.0 mEq/L (98-107); CREATININE 0.8 mg/dL (0.55-1.02); EST CRCL DRUG DOSING (CG) 96.18 mL/min; ESTIMATED GFR 97.0 mL/min (>60); GLUCOSE RANDOM 104.0 mg/dL (70-99); POTASSIUM,K 3.8 mEq/L (3.5-5.1); PROTEIN TOTAL,TP 7.1 g/dl (6.4-8.2); SODIUM,NA 142.0 mEq/L (136-145)
[2025-04-04 22:13] VITALS: BP 120/83; PULSE 82
== END 2025-04-04 22:00 | disposition home or self-care (01) ==
LOC: JD.ED 20:02
DX: M25.561 Pain in right knee (principal); E66.9 Obesity, unspecified; Z79.899 Other long term (current) drug therapy; Z88.8 Allergy status to other drugs, medicaments and biological substances; Z90.710 Acquired absence of both cervix and uterus; Z68.35 Body mass index [BMI] 35.0-35.9, adult
CPT/HCPCS: 36415; 80053; 85025; 86140; 93971-26-RT; 93971-RT; 99284